=== PATIENT | male | born 1950 | race Hispanic/Latino ===

== ENCOUNTER 2016-04-26 17:16 | Emergency (ER) | payer MEDICARE ==
[~2016-04-26] VITALS: Ht 182.9 cm; Wt 91.8 kg
[~2016-04-26 17:16] MED LIST: ASPI-973 PO; ATOR10TA66 PO; CARV6.252 PO; CINA30TA PO; CIPR-198 PO; EZET10TA PO; FURO40TA4 PO; HYDR-4003 PO; INSU100V27 SQ; INSU100V7 SUBQ; LEVO112T4 PO; LIDO1KIT TP; MIDO10TA PO; SEVE800T7 PO
[2016-04-26 17:23] VITALS: BP 107/59; PULSE 98; RESP 20; O2SAT 95
--- NOTE | 2016-04-26 18:24 | ED.REPORT ---
HPI-Allergic Reaction Date of Service Apr 26, 2016 ED Provider: MD Shirley This is a 65 year old male with a history of CAD, DM, chronic renal failure on dialysis presenting to the emergency department complaining of hives that began 2 days ago. Pt started on kexacalate and reports onset after taking the medication. Describes diffuse hives to extremities, chest, and back. Denies tongue swelling, throat swelling, or SOB. Pt last dialyzed today, upcoming dialysis appointment on Sunday. Nursing Notes Stated Complaint: ALLERGY REACTION/ITCHY LEGS Chief Complaint: Allergic Reaction Nursing Notes Reviewed: Yes Allergies: Coded Allergies: barium sulfate (Verified Allergy, Severe, severe swelling, 03/13/15) Scheduled Aspirin (Aspirin) 81 Mg Tablet 81 MG PO DAILY Atorvastatin Calcium (Atorvastatin Calcium) 10 Mg Tablet 10 MG PO DAILY Cinacalcet (Sensipar) 30 Mg Tablet 30 MG PO HS Ezetimibe (Zetia) 10 Mg Tablet 10 MG PO DAILY Furosemide (Furosemide) 40 Mg Tablet 60 MG PO BID Insulin Glargine (Lantus U100 Insulin Vial) 100 Unit/Ml Vial 20 UNIT SUBQ MORNING Insulin Regular, Human (Novolin-R U100 Insulin Vial) 100 Unit/1 Ml Vial Unknown Dose SQ tid sliding scale Levothyroxine (Levothyroxine) 112 Mcg Tablet 112 MCG PO DAILY Midodrine (Midodrine) 10 Mg Tablet 10 MG PO DAILY Sevelamer Carbonate (Renvela) 800 Mg Tablet 800 MG PO TID Scheduled PRN Hydrocodone-Acetaminophen 5-325 mg (Hydrocodone-Acetaminophen 5-325 mg) 1 Each Tablet 1 TABLET PO Q4H PRN PRN For Pain Lidocaine/Prilocaine (Lidocaine-Prilocaine Cream) 1 Each Kit 1 EACH TP DAILY PRN PRN For Pain To fistula prior to dialysis General Time Seen by MD: 18:23 Chief Complaint Rash Hx Obtained From: Patient Arrived By: Walk-in Onset Occurred: 2 days ago Symptom Duration: Since onset Severity: Current: Mild Pertinent Negative: Pt denies other symptoms Recent Healthcare: Recent doctor visit Similar Sx Previous: No Past Medical History Past Medical History Notes: PCP: Dr. Person Past Medical History ESRD PVD w/claudication Pressure ulcers Hypothyroid Anemia HTN Chronic renal failure on dialysis Reports: Coronary artery disease, Diabetes mellitus Past Surgical History Fistula placed in September 2013 Left side toe and finger amputation. Family History Noncontributory Smoking History Former Smoker Social History Alcohol Use: Denies alcohol use Drug Use: Denies drug use Other Social History: Good social support, , Local resident Ambulatory Status Walker Review of Systems Constitutional: Denies: Chills, Fever Ears / Nose / Throat: Denies: Tongue swelling Respiratory: Denies: Shortness of breath Allergy / Immune: Reports: Hives, Itching Complete sys rev & neg: except as marked. Physical Exam Initial Vital Signs Vital Signs (First) Date Time Temp Pulse Resp B/P Pulse Ox O2 Delivery O2 Flow Rate FiO2 04/26/16 17:23 36.0 98 20 107/59 95 Room Air Initial VS: Reviewed Head / Eyes: Atraumatic, Normocephalic, PERRL ENT: Mucous membranes moist, Conjunctiva normal, No scleral icterus Neck: Supple, Non-tender, Full range of motion Abdomen / GI: Soft, Non-tender, No guarding, No rebound, No distention Extremities: Vascular intact, Neuro intact, No swelling, No tenderness Neurologic: Alert, Oriented, Nonfocal Psychiatric: Mood/affect normal, Behavior normal, Normal thought content General/Constitutional: Awake, Alert Respiratory / Chest: Breath sounds NL, Breath sounds = bilat, No respiratory distress, No rales, No rhonchi, No wheezing, No retractions, No stridor Cardiovascular: Heart rate NL, Regular rhythm, Heart sounds NL, Peripheral circulation NL Skin: Warm, Dry Rash / Lesion Notes: Urticarial wheels on anterior chest and legs, no angioedema Interpretation & Diagnostics Lab Results Interpretation Result Diagram: 04/26/16192404/26/161924 Test 04/26/16 19:24 04/26/16 19:25 Hold Ross Top Tube Received (Received) White Blood Count 8.7th/mm3 (3.8-10.1) Red Blood Count 4.05mil/mm3 (4.40-5.80) Hemoglobin 14.2g/dL (13.8-17.2) Hematocrit 40.1% (41.0-50.0) Mean Corpuscular Volume 99.0fL (81-100) Mean Corpuscular Hemoglobin 35.1pg (27.0-35.0) Mean Corpuscular Hemoglobin Concent 35.4% (32.0-37.0) Red Cell Distribution Width 13.6% (12.3-15.4) Platelet Count 225bil/L (150-400) Neutrophils (%) (Auto) 62.1% (40-74) Lymphocytes (%) (Auto) 19.0% (14-46) Monocytes (%) (Auto) 11.5% (4-12) Eosinophils (%) (Auto) 6.2% (0-5) Basophils (%) (Auto) 0.6% (0-3) Sodium Level 132mEq/L (134-144) Potassium Level 3.6mEq/L (3.5-5.2) Chloride Level 85mEq/L (97-108) Carbon Dioxide Level 27mmol/L (18-29) Blood Urea Nitrogen 22mg/dL (8-27) Creatinine 6.29mg/dL (0.76-1.27) Estimat Glomerular Filtration Rate 9mL/min (>59) Glucose Level 281mg/dL (60-99) Calcium Level 8.8mg/dL (8.5-10.1) Total Bilirubin 0.4mg/dL (0.0-1.2) Aspartate Amino Transf (AST/SGOT) 24U/L (0-50) Alanine Aminotransferase (ALT/SGPT) 9U/L (0-44) Alkaline Phosphatase 106U/L (25-160) Total Protein 8.2g/dL (6.4-8.4) Albumin 4.1g/dL (3.4-5.0) Re-Eval/Medical Decision Med Decision/Clinical Course Pleasant 65-year-old male presents with diffuse urticaria after drinking some Kayexalate that was administered for hyperkalemia. He was medicated with Benadryl and steroids. The rash improved significantly. He had no signs of angioedema or anaphylaxis. Labs were reassuring. Of course his creatinine is elevated. He has chronic renal failure. His potassium is normal. He looked good at discharge. Vitals were stable. Recommend outpatient follow-up and that he avoids Kayexalate in the future. Re-Evaluation/Progress : Time of Eval: 20:07 Re-Evaluation/Progress Note: Discussed lab results and plan for d/c, all questions addressed Counseled Regarding: Diagnosis, Lab results, Need for follow-up, When/why to return to ED Discharge & Departure Primary Impression: Urticaria Additional Impression: Drug allergy Disposition: Home Discharge Condition All VS Reviewed: Yes Condition: Stable Patient Instructions: Urticaria (ED) Additional Instructions: You are allergic to the medication kayexalate. Do not take this medication in the future and inform your sap bw developer about the allergy. Follow up at your dialysis appointment, as scheduled. Return to the emergency department if you develop any new or worsening symptoms. Do not drive tonight as you received sedating medications Referrals: Olu Person MD (PCP) Scribe Attestation Portions of this note were transcribed by Xander Sol. I, Dr. Watson personally performed the history, physical exam and medical decision-making; I reviewed and confirmed the accuracy of the information in the transcribed note. Signed by: Xander Sol. 04/26/2016, 03:00. Kris Watson DO Apr 26, 2016 18:23 XANDER SOL Apr 26, 2016 18:33
[2016-04-26 19:33] LABS: BASOPHILS % (AUTO) 0.6 % (0-3); EOSINOPHILS % (AUTO) 6.2 % (0-5); MONOCYTES % (AUTO) 11.5 % (4-12); Mean Corpuscular Hemoglobin 35.1 pg (27.0-35.0); NEUTROPHILS % (AUTO) 62.1 % (40-74); Platelet Count 225 bil/L (150-400)
[2016-04-26] MEDS ORDERED: hydrOXYzine Pamoate 25 mg Capsule PO ONE (20:40)
[2016-04-26 20:50] VITALS: BP 110/64; PULSE 102; RESP 18; O2SAT 99
[2016-07-24] MEDS ORDERED: CARV3.122 PO (16:25)
== END 2016-04-26 20:53 | disposition home or self-care (01) ==
LOC: SED 17:16
DX: L50.9 Urticaria, unspecified (principal); T50.3X5A Adverse effect of electrolytic, caloric and water-balance agents, initial encounter; I13.11 Hypertensive heart and chronic kidney disease without heart failure, with stage 5 chronic kidney disease, or end stage renal disease; E11.22 Type 2 diabetes mellitus with diabetic chronic kidney disease; E11.59 Type 2 diabetes mellitus with other circulatory complications; I25.10 Atherosclerotic heart disease of native coronary artery without angina pectoris; N18.6 End stage renal disease; E03.9 Hypothyroidism, unspecified; Z99.2 Dependence on renal dialysis; Z79.82 Long term (current) use of aspirin; Z79.4 Long term (current) use of insulin; Z87.891 Personal history of nicotine dependence; Z88.8 Allergy status to other drugs, medicaments and biological substances
CPT/HCPCS: 36415; 80053; 85025; 99283; Q0177

== ENCOUNTER 2016-06-19 01:22 | Day surgery (SDC) | payer MEDICARE ==
[~2016-06-19] VITALS: Ht 182.9 cm; Wt 88.6 kg
[~2016-06-19 01:22] MED LIST changes: -CARV6.252 PO; -CIPR-198 PO
[2016-06-19 10:26] LABS: BASOPHILS % (AUTO) 0.6 % (0-3); EOSINOPHILS % (AUTO) 1.4 % (0-5); Mean Corpuscular Hemoglobin 34.3 pg (27.0-35.0); Mean Corpuscular Volume 106.5 fL (81-100); Platelet Count 235 bil/L (150-400)
[2016-06-19 10:36] VITALS: BP 129/70; PULSE 79; RESP 18; O2SAT 94
[2016-06-19 10:46] LABS: INR 0.95 ratio
[2016-06-19] MEDS ORDERED: LEVO125T6 PO (11:00)
[2016-06-19] MEDS ORDERED: CeFAZolin Inj 2 GM in IV Premix 1 EACH IV ONE (11:05)
[2016-06-19] MEDS ORDERED: CeFAZolin Inj 2 gm / 50mL D5W IV ONE (11:24)
[2016-06-19] MEDS ORDERED: 0.9% Sodium Chloride 500 ML IV SCH (11:45)
[2016-06-19] MEDS ORDERED: Heparin 5,000 Units/500 mL NS Premix IV ONE (12:24)
[2016-06-19] MEDS ORDERED: Heparin 1,000 Unit/mL 10 mL Inj ONE (12:24)
[2016-06-19] MEDS ORDERED: fentaNYL-PF 50 mCg/mL 2 mL Inj ONE (12:58)
[2016-06-19 13:30] VITALS: BP 118/65; PULSE 89; RESP 13
[2016-06-19 13:45] VITALS: BP 122/64; PULSE 92; RESP 13
[2016-06-19 14:00] VITALS: BP 128/61; PULSE 94; RESP 13
[2016-06-19 14:15] VITALS: BP 119/63; PULSE 94; RESP 18
[2016-06-19 14:30] VITALS: BP 150/67; PULSE 92; RESP 18
--- NOTE | 2016-06-19 15:01 | NUR ---
Discharge Pt discharged to home with , pt VSS on RA, tunnel cath site soft non tender, no signs of bleeding or swelling throughout recovery. Pt stated verbal understanding of discharge instructions regarding use of home medications, follow up appointments and signs of worsening condition. Pt left [facility] personal belongings, discharge paperwork, IV d'cd intact at approximately 1500.
--- NOTE | 2016-06-21 09:57 | DRSVH ---
PROCEDURE: CV TUNNEL CATH PLCMNT 1. Sonographic guidance for venous access. 2. Conscious sedation for 41 minutes. 3. Right internal jugular vein tunneled hemodialysis catheter placement. 4. Fluoroscopic guidance for catheter placement. INDICATIONS: HOCM TECHNIQUE: The indications, alternatives, benefits, risks, and complications of the procedure were e xplained to the patient and any family members present. Informed written consent was obtained and pl aced in the chart. The patient was brought to the angiography suite, and conscious sedation was admi nistered intravenously by intermediate staff, while continuous cardiorespiratory monitoring was pe rformed. Maximum sterile barrier technique was employed per standard protocol, including hand hygiene, cap, ma sk, sterile gown and gloves, and 2% chlorhexidine. Sterile ultrasound probe cover was also utilized. 1% lidocaine was used for local anaesthesia. Under sonographic guidance, the right internal jugular vein was accessed with a Micropuncture set. An 0.035J wire was advanced into the vena cava. Subcuta neous tunnel was created within the right anterior chest wall, through which a 14.5 Maori double lum en tunneled hemodialysis catheter was advanced. Following sequential venotomy tract dilation, the ca theter was advanced through the peel-away sheath and the tip was placed at the cavoatrial junction. Peel-away sheath was removed. Adequate flow was obtained through both lumens of the catheter. The v enotomy was closed with Vicryl, and the catheter was fastened to the sking with Ticron. Both lumens were flushed with heparinized saline. The patient tolerated the procedure without difficulty and was in stable condition at the conclusion of the procedure. COMPARISON: None. FINDINGS: The right internal jugular vein is patent by ultrasound. Fluoroscopic imaging demonstrates tip of th e catheter at the cavoatrial junction. IMPRESSION: Right internal jugular vein tunneled hemodialysis catheter placement using sonographic and fluoroscop ic guidance. Dictated by: Zoe Grimes M.D. on 06/21/2016 at 9:55 Approved by: Zoe Grimes M.D. on 06/21/2016 at 9:56
[2016-07-24] MEDS ORDERED: CARV3.122 PO (16:25)
== END 2016-06-19 23:59 | disposition home or self-care (01) ==
LOC: SOUO 01:22
PROVIDERS: ATTEND Radiology Diagnostic Radiology
DX: I12.0 Hypertensive chronic kidney disease with stage 5 chronic kidney disease or end stage renal disease (principal); E11.21 Type 2 diabetes mellitus with diabetic nephropathy; N18.6 End stage renal disease; T82.868A Thrombosis due to vascular prosthetic devices, implants and grafts, initial encounter; Y83.2 Surgical operation with anastomosis, bypass or graft as the cause of abnormal reaction of the patient, or of later complication, without mention of misadventure at the time of the procedure; I74.8 Embolism and thrombosis of other arteries; N25.0 Renal osteodystrophy; Z99.2 Dependence on renal dialysis; Z79.82 Long term (current) use of aspirin; Z79.4 Long term (current) use of insulin
CPT/HCPCS: 36415; 36558; 76937; 77001; 80048; 85025; 85610; 85730; 99152; C1750; C1769; C1887; J1644; J2250; J3010

== ENCOUNTER 2016-07-03 19:27 | Emergency (ER) | payer MEDICARE ==
[~2016-07-03] VITALS: Ht 182.9 cm; Wt 88.6 kg
[~2016-07-03 19:27] MED LIST changes: -EZET10TA PO; -HYDR-4003 PO; -LEVO112T4 PO; +LEVO125T6 PO
[2016-07-03 19:38] VITALS: BP 99/53; PULSE 85; RESP 16; O2SAT 96
--- NOTE | 2016-07-03 22:02 | ED.REPORT ---
HPI-Extremity Problem Lower Date of Service July 03, 2016 ED Provider: Sukhwinder Tam MD A 65 year old male with a history of ESRD on dialysis, diabetes, hypertension and multiple other medical concerns presents to the ED complaining of diabetic sores on his feet onset one week ago. The sores are present on both feet but are worse on the right, causing pain when the pt walks. The sore on his right foot recently burst and has been draining clear fluid. The pt denies fever. He has an appointment scheduled with his PCP later this month, but is concerned that the condition may worsen significantly before this appointment. The pt's blood sugar was 231 when he checked at 09:00 and he was last dialyzed today. Nursing Notes Stated Complaint: SORES ON HEALS OF FEET/DIABETIC Chief Complaint: Skin Rash/Abscess Nursing Notes Reviewed: Yes Allergies: Coded Allergies: barium sulfate (Verified Allergy, Severe, severe swelling, 07/03/16) Uncoded Allergies: KAEXYLATE (Allergy, Mild, Hives, 07/03/16) Scheduled Aspirin (Aspirin) 81 Mg Tablet 81 MG PO DAILY Atorvastatin Calcium (Atorvastatin Calcium) 10 Mg Tablet 10 MG PO DAILY Cinacalcet (Sensipar) 30 Mg Tablet 30 MG PO HS Furosemide (Furosemide) 40 Mg Tablet 60 MG PO BID Insulin Glargine (Lantus U100 Insulin Vial) 100 Unit/Ml Vial 25 UNIT SUBQ MORNING Insulin Regular, Human (Novolin-R U100 Insulin Vial) 100 Unit/1 Ml Vial 5-10 SQ tid sliding scale Levothyroxine (Levothyroxine) 125 Mcg Tablet 125 MCG PO DAILY Midodrine (Midodrine) 10 Mg Tablet 10 MG PO BID Sevelamer Carbonate (Renvela) 800 Mg Tablet 800 MG PO TID Scheduled PRN Lidocaine/Prilocaine (Lidocaine-Prilocaine Cream) 1 Each Kit 1 EACH TP DAILY PRN PRN For Pain To fistula prior to dialysis General Time Seen by MD: 22:02 Chief Complaint Other (Sores on bilateral feet) Hx Obtained From: Patient, Spouse Arrived By: Wheelchair Onset Occurred: 1 week ago Symptom Duration: Since onset Recent Healthcare: No recent hospitalization, Recent doctor visit Similar Sx Previous: Yes Past Medical History Past Medical History Notes: PCP: Dr. Person Past Medical History ESRD on dialysis PVD w/claudication Pressure ulcers Hypothyroid Anemia Chronic renal failure on dialysis Reports: Coronary artery disease, Diabetes mellitus, Hypertension Past Surgical History Fistula placed in September 2013 Left side toe and finger amputation. Family History Noncontributory Smoking History Former Smoker Social History Alcohol Use: Denies alcohol use Drug Use: Denies drug use Other Social History: Good social support, , Local resident Ambulatory Status Walker Review of Systems Review of Systems Note: draining diabetic sores on bilateral feet Constitutional: Denies: Fever Musculoskeletal: Reports: Extremity pain Complete sys rev & neg: except as marked. Respiratory: Denies: Non-productive cough Cardiovascular: Denies: Chest pain GI: Denies: Abdominal pain Physical Exam Initial Vital Signs Vital Signs (First) Date Time Temp Pulse Resp B/P Pulse Ox O2 Delivery O2 Flow Rate FiO2 07/03/16 19:38 36.2 85 16 99/53 96 Room Air Initial VS: Reviewed Lower Extremity / Pelvis / MS: Atraumatic, Full range of motion Ankle / Foot: Neurologic intact, Vascular intact quarter-sized circular full thickness wound on right heel, draining clear fluid superficial ulcer at tip of third toe and laterally on fifth toe dried wound over the fifth metatarsal trans metatarsal amputation of first three metatarsals of the left foot dime-sized ulcer on the lateral aspect of the left heel, full thickness, not draining General/Constitutional: Awake, Alert Respiratory / Chest: Atraumatic, Breath sounds NL, Breath sounds = bilat, No respiratory distress Cardiovascular: Heart rate NL, Regular rhythm, Heart sounds NL Skin: Atraumatic, Color NL, No rash, Warm, Dry Neurologic: Oriented X3, Speech NL, No motor deficits, No sensory deficits Head / Eyes: Atraumatic, Normocephalic, PERRL, EOMI ENT: Atraumatic, Airway patent, Mucous membranes moist Neck: Atraumatic, Supple, Full range of motion Abdomen: Atraumatic, Soft, Non-tender Back: Atraumatic, Full range of motion Upper Extremity / MS: Atraumatic, Full range of motion Psychiatric: Affect NL, Mood NL Interpretation & Diagnostics Lab Results Interpretation Result Diagram: 07/03/16223907/03/162239 Test 07/03/16 22:40 White Blood Count 11.1th/mm3 (3.8-10.1) Red Blood Count 3.63mil/mm3 (4.40-5.80) Hemoglobin 12.4g/dL (13.8-17.2) Hematocrit 37.9% (41.0-50.0) Mean Corpuscular Volume 104.4fL (81-100) Mean Corpuscular Hemoglobin 34.2pg (27.0-35.0) Mean Corpuscular Hemoglobin Concent 32.7% (32.0-37.0) Red Cell Distribution Width 13.2% (12.3-15.4) Platelet Count 241bil/L (150-400) Neutrophils (%) (Auto) 68.7% (40-74) Lymphocytes (%) (Auto) 16.5% (14-46) Monocytes (%) (Auto) 10.2% (4-12) Eosinophils (%) (Auto) 3.5% (0-5) Basophils (%) (Auto) 0.6% (0-3) Sodium Level 134mEq/L (134-144) Potassium Level 3.9mEq/L (3.5-5.2) Chloride Level 92mEq/L (97-108) Carbon Dioxide Level 25mmol/L (18-29) Blood Urea Nitrogen 22mg/dL (8-27) Creatinine 6.23mg/dL (0.76-1.27) Estimat Glomerular Filtration Rate 10mL/min (>59) Glucose Level 307mg/dL (60-99) Calcium Level 8.1mg/dL (8.5-10.1) Total Bilirubin 0.3mg/dL (0.0-1.2) Aspartate Amino Transf (AST/SGOT) 14U/L (0-50) Alanine Aminotransferase (ALT/SGPT) 7U/L (0-44) Alkaline Phosphatase 119U/L (25-160) Total Protein 7.7g/dL (6.4-8.4) Albumin 3.4g/dL (3.4-5.0) Hold Ross Top Tube Received (Received) X-Ray Interpretation Xray Interpretation: no acute findings X-Ray Ordered: Foot right Interpretation / Wet Read by: Wet read ED physician Xray Interpretation: no acute bony issues X-Ray Ordered: Foot left Interpretation / Wet Read by: Wet read ED physician Re-Eval/Medical Decision Source of Hx: Old records Re-Evaluation/Progress : Time of Eval: 23:59 Patient Status: Condition improved Re-Evaluation/Progress Note: Pt rechecked, who is resting comfortably. The diagnosis and plan for discharge are discussed. The pt understands and agrees with the plan. All questions are addressed at this time. Consultation : Referral / Consult Name: Benjamin Ledezma DPM Call Returned at: 23:27 Customer Solutions Coordinator: Will see patient, Agrees with eval, Agrees with plan Note: Consulted with Dr. Ledezma, podietry, regarding pt's case. Dr. Ledezma agrees with the evaluation and agrees to see the pt in the office. Counseled Regarding: Diagnosis, Lab results, Need for follow-up, When/why to return to ED Discharge & Departure Impression: Primary Impression: Diabetic foot ulcer Diabetic foot ulcer location: heel Laterality: right Non-pressure ulcer stage: limited to breakdown of skin Additional Impression: Wound infection Disposition: Home Discharge Condition All VS Reviewed: Yes Condition: Stable Additional Instructions: Emergency department today reevaluated a diabetic foot wound on the heel. Right foot. This does appear to be infected and there does not appear to be bone involvement at present. We gave a single dose of Levaquin orally and discussed the case with Dr Ledezma of podiatry. Call the podiatry office tomorrow to be seen by Dr. Jack tomorrow. Continue other previous home care. Referrals: Olu Person MD (PCP) Mariel Herndon MD, Nathan A DPM Scribe Attestation Portions of this note were transcribed by Delaney Olmstead. I, Dr. Tam personally performed the history, physical exam and medical decision-making; I reviewed and confirmed the accuracy of the information in the transcribed note. Signed by: Parris Alvarado, 07/04/16 and 0046. copies to: Mariel Herndon MD; Olu Person MD, Donald L MD July 03, 2016 22:02 DELANEY OLMSTEAD July 03, 2016 22:13
[2016-07-03 22:31] VITALS: BP 97/62; PULSE 69; RESP 20; O2SAT 95
[2016-07-03 22:57] LABS: BASOPHILS % (AUTO) 0.6 % (0-3); EOSINOPHILS % (AUTO) 3.5 % (0-5); MONOCYTES % (AUTO) 10.2 % (4-12); Mean Corpuscular Hemoglobin 34.2 pg (27.0-35.0); Mean Corpuscular Volume 104.4 fL (81-100); NEUTROPHILS % (AUTO) 68.7 % (40-74); Platelet Count 241 bil/L (150-400)
[2016-07-03] MEDS ORDERED: levoFLOXacin 500 mg Tablet PO ONE (23:35)
[2016-07-04 00:25] VITALS: BP 95/52; PULSE 71; RESP 16; O2SAT 94
--- NOTE | 2016-07-04 08:28 | DRSVH ---
PROCEDURE: X-RAY RIGHT FOOT COMPLETE, MINIMUM THREE VIEWS ([id number]) INDICATIONS: diabetic with foot wounds, RIGHT heel most concern TECHNIQUE: 3 views of the foot were acquired. COMPARISON: [facility], CR, XR TOE(S) 2VW RT, 10/23/2015, 20:19. FINDINGS: Bones: No fractures or dislocations. No suspicious bony lesions. Osteoarthritic changes redemonstr ated. Soft tissues: No tibiotalar joint effusion. Achilles tendon appears normal. Vascular calcification s indicate atherosclerosis. IMPRESSION: Although no bony erosions are identified, plain film radiography is relatively insensiti ve in the acute phases of osteomyelitis and may not demonstrate radiographic changes for 15 days. If acute osteomyelitis is of clinical concern, nuclear medicine regional bone scan or MRI is recommende d. Dictated by: Mikhail Hamilton [facility] Interpreted: Celestine Godfrey MD on 07/04/2016 at 8:27 Transcribed by: JUANA on 07/04/2016 at 8:28 Approved by: Celestine Godfrey M.D. on 07/04/2016 at 9:53
--- NOTE | 2016-07-04 08:31 | DRSVH ---
PROCEDURE: X-RAY LEFT FOOT COMPLETE, MINIMUM THREE VIEWS ([id number]) INDICATIONS: diabetic with foot wounds, RIGHT heel most concern TECHNIQUE: 3 views of the foot were acquired. COMPARISON: [facility], CR, XR FOOT 3VW RT, 07/03/2016, 22:34. [facility], C R, XR TOE(S) 2VW RT, 10/23/2015, 20:19. FINDINGS: Bones: No fractures or dislocations. No suspicious bony lesions. Prior amputation of the third thr ough fifth digits from the proximal metatarsal level. There is cortical irregularity and lucency abo ut the distal aspect of the third residual metatarsal base with adjacent soft tissue swelling. Remot e first metatarsal fracture. Osteoarthritic changes redemonstrated. Soft tissues: No tibiotalar joint effusion. Achilles tendon appears normal. Vascular calcification s indicate atherosclerosis. IMPRESSION: 1. Cortical irregularity and lucency involving the distal aspect of the residual third metatarsal bon e suspicious for osteomyelitis. Correlate clinically. Dictated by: Mikhail Hamilton Chantal Interpreted: Celestine Godfrey MD on 07/04/2016 at 8:28 Transcribed by: JUANA on 07/04/2016 at 8:30 Approved by: Celestine Godfrey M.D. on 07/04/2016 at 9:53
[2016-07-24] MEDS ORDERED: CARV3.122 PO (16:25)
== END 2016-07-04 00:26 | disposition home or self-care (01) ==
LOC: SED 19:27
DX: E11.621 Type 2 diabetes mellitus with foot ulcer (principal); L97.411 Non-pressure chronic ulcer of right heel and midfoot limited to breakdown of skin; L08.9 Local infection of the skin and subcutaneous tissue, unspecified; E11.22 Type 2 diabetes mellitus with diabetic chronic kidney disease; I12.0 Hypertensive chronic kidney disease with stage 5 chronic kidney disease or end stage renal disease; N18.6 End stage renal disease; I73.9 Peripheral vascular disease, unspecified; E03.9 Hypothyroidism, unspecified; I25.10 Atherosclerotic heart disease of native coronary artery without angina pectoris; Z99.2 Dependence on renal dialysis; Z95.828 Presence of other vascular implants and grafts; Z87.891 Personal history of nicotine dependence; Z79.4 Long term (current) use of insulin; Z79.82 Long term (current) use of aspirin; Z88.8 Allergy status to other drugs, medicaments and biological substances

== ENCOUNTER 2016-07-20 00:10 | Day surgery (SDC) | payer MEDICARE ==
[~2016-07-20] VITALS: Ht 182.9 cm; Wt 84.0 kg
--- NOTE | 2016-07-20 09:10 | NUR ---
HERE FOR PHYSICIAN CONSULT WITH DR SNOWDEN
[2016-07-20 09:15] VITALS: BP 80/49; PULSE 101; RESP 16; O2SAT 98
--- NOTE | 2016-07-20 09:45 | NUR ---
INSTRUCTIONS GIVEN. APPOINTMENT MADE
[2016-07-24] MEDS ORDERED: CARV3.122 PO (16:25)
== END 2016-07-20 23:59 | disposition home or self-care (01) ==
LOC: SOUO 00:10
PROVIDERS: ATTEND Radiology Diagnostic Radiology
DX: Z71.89 Other specified counseling (principal); E11.621 Type 2 diabetes mellitus with foot ulcer; E11.40 Type 2 diabetes mellitus with diabetic neuropathy, unspecified; L97.419 Non-pressure chronic ulcer of right heel and midfoot with unspecified severity; L89.613 Pressure ulcer of right heel, stage 3; Z79.4 Long term (current) use of insulin

== ENCOUNTER 2016-07-25 00:31 | Day surgery (SDC) | payer MEDICARE ==
[~2016-07-25] VITALS: Ht 182.9 cm; Wt 84.0 kg
[2016-07-25] VITALS (9 sets, daily range): BP systolic 103–120; BP diastolic 57–72; PULSE 72–82; RESP 16; O2SAT 94–97
[~2016-07-25 00:31] MED LIST changes: +CARV3.122 PO; -LIDO1KIT TP
[2016-07-25 11:30] LABS: INR 0.95 ratio
[2016-07-25 11:31] LABS: BASOPHILS % (AUTO) 0.6 % (0-3); EOSINOPHILS % (AUTO) 3.1 % (0-5); MONOCYTES % (AUTO) 11.6 % (4-12); Mean Corpuscular Volume 102.4 fL (81-100); NEUTROPHILS % (AUTO) 59.8 % (40-74); Platelet Count 274 bil/L (150-400)
[2016-07-25] MEDS ORDERED: CeFAZolin Inj 2 gm / 50mL D5W IV ONE (12:21)
[2016-07-25] MEDS ORDERED: fentaNYL-PF 50 mCg/mL 2 mL Inj ONE ×2 (12:44→13:38)
[2016-07-25] MEDS ORDERED: Heparin 10,000 Unit/1,000 mL NS Premix IV ONE ×2 (12:44→13:42)
[2016-07-25] MEDS ORDERED: Heparin 1,000 Unit/mL 10 mL Inj ONE (12:57)
[2016-07-25] MEDS ORDERED: Protamine Sulfate 10 mg/mL 5 mL Inj ONE (13:59)
--- NOTE | 2016-07-25 15:30 | DRSVH ---
PROCEDURE: 1. Abdominal aortogram. 2. Bilateral lower extremity runoff evaluation. 3. Selective angiography of right common femoral artery. 4. Conscious sedation x73 minutes. INDICATIONS: Peripheral vascular disease. COMPARISON: [facility] Ultrasound, US, US ARTERY LEG DPLX BILAT, 07/13/2016, 14:18. TECHNIQUE: Informed, written consent from the patient was obtained prior to the procedure. Patient wa s brought to the angiography suite, and conscious sedation was administered intravenously by residential staff, while continuous cardiorespiratory monitoring was performed. Maximal sterile barrier t echnique, hand hygiene, skin preparation, and sterile ultrasound technique (if ultrasound was utilize d) was followed. A mask, sterile gown, sterile gloves, a large sterile sheet, hand hygiene, and 2% ch lorhexidine or iodine was utilized for skin antisepsis. The bilateral groins were prepped and draped sterilely, and the skin and subcutaneous tissues overlying the left common femoral artery were infuse d with lidocaine. The left common femoral artery was accessed retrograde with a micropuncture set. A 4 Fijian sheath was advanced and a 4 Fijian pigtail catheter was advanced into the perirenal abdomina l aorta and injected for AP aortography. Pigtail catheter was then withdrawn into the distal aorta fo r bilateral oblique pelvic arteriography, as well as bilateral lower extremity runoff. A C2 catheter was then used to select the right common iliac artery, and was advanced and used to selectively injec t the right common femoral artery. Intravenous heparin was administered. A 6 Fijian Miguel sheath was advanced, and the tip was placed in the proximal superficial femoral artery. A 6 Fijian front runner device was used to attempt to recannulize the superficial femoral artery, which was unsuccessful. She ath was removed and the left common femoral artery was closed with a Starclose device. FLUOROSCOPY TIME: 21 minutes FINDINGS: The abdominal aorta is mildly diffusely stenotic. Single bilateral renal arteries are pres ent, and are patent. Left: Common iliac artery is widely patent. High grade stenosis involves the left internal iliac artery jamie gin. External iliac arteries patent. Common femoral artery is patent, and demonstrates a high bifurca tion. Profunda femoris patent. Moderate stenosis involves the proximal superficial femoral artery. Mu ltifocal high-grade stenoses within the superficial femoral artery are present. There is a roughly 15 cm long segment of distal left superficial femoral artery occlusion. Above and below-knee popliteal artery is patent. Runoff vessels are not well-seen secondary to motion artifact. Right: Comment an external iliac arteries are mildly diffusely stenotic. Internal iliac artery is occluded. Common femoral artery is patent. Profunda femoris patent. Superficial femoral artery occludes just di stal to its origin. Superficial femoral artery reconstitutes distally. Above and below-knee popliteal artery is patent. Anterior tibial artery appears to be patent to its normal terminus. Peroneal and p osterior tibial arteries not well seen secondary to motion artifact. IMPRESSION: 1. No significant inflow stenosis. 2. Bilateral superficial femoral artery occlusions. 3. Suboptimally visualized runoff vessels bilaterally. 4. Unsuccessful attempt at antegrade recanalization of right superficial femoral artery. The patient will be scheduled to return for retrograde popliteal artery access and attempted retrograde recanaliz ation of the superficial femoral artery. Dictated by: Zoe Grimes M.D. on 07/25/2016 at 14:58 Approved by: Zoe Grimes M.D. on 07/25/2016 at 15:29
--- NOTE | 2016-07-25 17:50 | NUR ---
Pt discharged to home, ambulatory with walker, accompanied by spouse. Pt's VSS, Lt groin puncture site CDI with no bleeding/hematoma noted. Pt given all discharge instructions and scheduled appointment. Pt had no further questions at time of d/c.
== END 2016-07-25 23:59 | disposition home or self-care (01) ==
LOC: SOUO 00:31
PROVIDERS: ATTEND Radiology Diagnostic Radiology
DX: I70.203 Unspecified atherosclerosis of native arteries of extremities, bilateral legs (principal); Z53.8 Procedure and treatment not carried out for other reasons; I70.8 Atherosclerosis of other arteries; I77.1 Stricture of artery; L89.613 Pressure ulcer of right heel, stage 3; I12.9 Hypertensive chronic kidney disease with stage 1 through stage 4 chronic kidney disease, or unspecified chronic kidney disease; E11.22 Type 2 diabetes mellitus with diabetic chronic kidney disease; E11.40 Type 2 diabetes mellitus with diabetic neuropathy, unspecified; E03.9 Hypothyroidism, unspecified; N18.9 Chronic kidney disease, unspecified; I25.10 Atherosclerotic heart disease of native coronary artery without angina pectoris; E78.5 Hyperlipidemia, unspecified; Z79.82 Long term (current) use of aspirin; Z79.4 Long term (current) use of insulin
CPT/HCPCS: 36415; 37224; 75625; 75716; 80048; 85025; 85610; 99152; 99153; C1730; C1760; C1769; C1894; J0690; J1644; J2250; J2720; J3010; Q9967

== ENCOUNTER 2016-08-08 00:22 | Day surgery (SDC) | payer MEDICARE ==
[~2016-08-08] VITALS: Ht 182.9 cm; Wt 86.8 kg
[2016-08-08] VITALS (18 sets, daily range): BP systolic 105–128; BP diastolic 56–82; PULSE 67–85; RESP 12–20; O2SAT 90–95
[~2016-08-08 00:22] MED LIST changes: -CARV3.122 PO
[2016-08-08 11:24] LABS: BASOPHILS % (AUTO) 1.3 % (0-3); EOSINOPHILS % (AUTO) 4.2 % (0-5); MONOCYTES % (AUTO) 9.2 % (4-12); Mean Corpuscular Hemoglobin 32.6 pg (27.0-35.0); Mean Corpuscular Volume 105.4 fL (81-100); NEUTROPHILS % (AUTO) 51.5 % (40-74); Platelet Count 256 bil/L (150-400)
[2016-08-08 11:28] LABS: INR 0.94 ratio
[2016-08-08] MEDS ORDERED: Heparin 10,000 Unit/1,000 mL NS Premix IV ONE (12:10)
--- NOTE | 2016-08-08 12:49 | NUR ---
CESAR Admit to CESAR 6. at bedside. Patient denies pain. HL X 2 placed and labs drawn. Consent obtained by MD and witnessed. History and medications reviewed. BG elevated but patient states his baseline is over 200 and he does not feel well if lower than 150. MD notified. Pre-procedure teaching done and questions answered.
[2016-08-08] MEDS ORDERED: fentaNYL-PF 50 mCg/mL 2 mL Inj ONE ×2 (13:12→15:21)
[2016-08-08] MEDS ORDERED: Heparin 1,000 Unit/mL 10 mL Inj ONE (13:25)
[2016-08-08] MEDS ORDERED: Heparin 5,000 Units/500 mL NS Premix IV ONE (15:21)
--- NOTE | 2016-08-08 16:31 | DRSVH ---
PROCEDURE: 1. Selective right superficial femoral arteriography. 2. Selective right popliteal arteriography. 3. Ultrasound guidance for right popliteal artery access. 4. Angioplasty of right superficial femoral artery. 5. Angioplasty of right above knee popliteal artery. 6. Drug-eluting stent placement within the proximal right superficial femoral artery. 7. Drug-eluting stent placement within the mid right superficial femoral artery. 8. Drug-eluting stent placement within right distal superficial femoral artery and right above knee p opliteal artery. 9. Right popliteal artery closure device. 10. Conscious sedation times 166 minutes. INDICATIONS: Nonhealing right lower extremity ulcer. COMPARISON: [facility], XA, ARTERIO VENOUS FISTULOGRAM (PNL), 11/18/2015, 12:58. [facility], XA, ANGIO,EXTREM BILATERAL (PNL), 07/25/2016, 12:56. TECHNIQUE: Informed, written consent from the patient was obtained prior to the procedure. Patient wa s brought to the angiography suite, and conscious sedation was administered intravenously by nursing home staff, while continuous cardiorespiratory monitoring was performed. Maximal sterile barrier t echnique, hand hygiene, skin preparation, and sterile ultrasound technique (if ultrasound was utilize d) was followed. A mask, sterile gown, sterile gloves, a large sterile sheet, hand hygiene, and 2% ch lorhexidine or iodine was utilized for skin antisepsis. The right popliteal fossa was prepped and laura ped sterilely, and the skin and subcutaneous tissues overlying the right popliteal artery were infuse d with lidocaine. The right popliteal artery was accessed retrograde with a micropuncture set. Contra st was injected for selective popliteal arteriography. A 4 Yi nontapered angled catheter, glide w adrian, and Outback device were used to recannulize the right superficial femoral artery and above-knee popliteal artery using subintimal dissection. A 5 mm balloon was used to pre-dilate the superficial f emoral artery and above-knee popliteal artery. A total of 3 drug-eluting stents were deployed within the proximal, mid, and distal superficial femoral artery, as well as the above-knee popliteal artery. The stents were then post dilated with a 6 mm balloon. Repeat arteriography was performed. Popliteal artery was closed with a Starclose device. FLUOROSCOPY TIME: 57.5 minutes FINDINGS: The superficial femoral artery and above-knee popliteal artery are occluded. Following rec annulization, angioplasty, stent, and post stent angioplasty, there is restored flow within the super ficial femoral artery and above-knee popliteal artery. There is three-vessel right lower extremity ru noff. IMPRESSION: 1. Successful recanalization of the above-knee popliteal artery, as well as the superficial femoral a rtery, status post drug-eluting stent placement. 2. Followup arterial Doppler and outpatient consult will be scheduled in 2 weeks. 3. Oral Plavix therapy was initiated following the procedure. The patient was instructed to take oral Plavix for 6 months, followed by ASA 325 mg p.o. q.d. for life. Dictated by: Zoe Grimes M.D. on 08/08/2016 at 16:23 Approved by: Zoe Grimes M.D. on 08/08/2016 at 16:29
[2016-08-08] MEDS ORDERED: Insulin Human REGular-Omnicell 100 Unit/mL ONE (16:39)
--- NOTE | 2016-08-08 20:57 | NUR ---
CESAR Patient return from [facility] at 1600. at bedside. Right popiteal puncture without bleeding or hematoma. Patient denies pain. Discharge instructions reviewed with patient and , written information given and questions answered. Home at 2030.
== END 2016-08-08 23:59 | disposition home or self-care (01) ==
LOC: SOUO 00:22
PROVIDERS: ATTEND Radiology Diagnostic Radiology
DX: I77.1 Stricture of artery (principal); L97.819 Non-pressure chronic ulcer of other part of right lower leg with unspecified severity
CPT/HCPCS: 36415; 37226; 80048; 85025; 85610; 99152; 99153; C1725; C1760; C1769; C1874; C1887; J1644; J1815; J2250; J3010; Q9967

== ENCOUNTER 2016-10-12 05:33 | Inpatient (IN) | payer MEDICARE ==
[2016-10-12] VITALS (9 sets, daily range): BP systolic 96–127; BP diastolic 56–80; PULSE 68–84; RESP 11–18; O2SAT 93–96
[~2016-10-12] VITALS: Ht 182.9 cm; Wt 86.2 kg
[~2016-10-12 05:33] MED LIST changes: -ASPI-973 PO; +CLOP75TA3 PO; -FURO40TA4 PO; +Lactated Ringer's 1,000 ML IV SCH; -SEVE800T7 PO
[2016-10-12] MEDS ORDERED: Lactated Ringer's 1,000 ML IV ONE (06:11)
--- NOTE | 2016-10-12 07:06 | PCM.HPANE ---
Patient Data Date of Service: Oct 12, 2016 Surgeon Admitting Provider: Attending Provider:Celine Carpio DPM Primary Care Physician:Olu Person MD Other Provider:Burak Curtis Anesthesia Reason for Visit Necrotic Ulcer Right Heel With Type 2 Diabetes And Ht/WT & BMI Height (Feet): 6 Height (Inches): 0.00 Weight (Kilograms): 83.900 Body Mass Index 25.00 Allergies Coded Allergies: barium sulfate (Verified Allergy, Severe, severe swelling, 10/10/16) Uncoded Allergies: KAEXYLATE (Allergy, Mild, Hives, 07/03/16) Past Anesthesia History Anesthesia History: Denies:: Abnormal Airway, Anesthesia Reactions, Difficult Intubation, Fam Anesthesia Reaction, Fam Malignant Hypertherm, Malignant Hyperthermia Diabetes History Hx Diabetes?: Yes Type of Diabetes: Type I Glycemic Control: Insulin Dependent Current Bedside Blood Glucose: 126 MRSA MRSA: No Medications Blood Thinner: Plavix Hypertension Medication: Yes (Midodrine) Home Meds Incl Beta Heide: No Reported Medications Clopidogrel Bisulfate (Plavix)75 Mg Wrzvyf85 Mg PO DAILY 30 Days Ref 0 10/10/16 Levothyroxine 125 Mcg [id number] Mcg PO DAILY For Thyroid Replacement Ref 0 06/19/16 Insulin Glargine (Lantus U100 Insulin Vial)100 Unit/Ml Vial25 Unit SUBQ HS #1 VIAL Ref 0 04/26/16 Midodrine 10 Mg [id number] Mg PO BID 11/18/15 Cinacalcet (Sensipar)30 Mg Eojftv71 Mg PO HS Ref 0 11/17/15 Insulin Regular, Human (Novolin-R U100 Insulin Vial)100 Unit/1 Ml Vial5-10 SQ tid sliding scale #1 VIAL Ref 0 10/13/14 Atorvastatin Calcium 10 Mg Zgquvo09 Mg PO DAILY 30 Days Ref 0 01/22/14 Discontinued Reported Medications Sevelamer Carbonate (Renvela)800 Mg Lsopav673 Mg PO TID 90 Days 11/17/15 Aspirin 81 Mg Gyojqc62 Mg PO DAILY Ref 0 10/13/14 History History of ENT Problems?: Yes HEENT History: Positive for:: Cataracts (left eye) Denies:: Abnormal Airway Difficult Intubation Dysphagia Glaucoma (Considered legally blind) Hearing Problem Sinus Problem TMJ Denture Type: Partial- Upper Teeth Condition: No Teeth Hx of Heart Problems?: Yes Cardiovascular History: Positive for:: Heart Murmur Hypertension Irregular Heartbeat (regularly irregular.) Peripheral Vascular (secondary to Diabetes) Denies:: AICD Abdominal Aortic Aneurism Atrial Fibrillation Cardiac Surgery Chest Pain Congestive Heart Failure Coronary Artery Disease Edema (Chronic kidney disease ) Pacemaker Rheumatic Fever Thrombophlebitis Valvular Heart Disease Hx of Respiratory Problem?: Yes Respiratory History: Positive for:: Pneumonia (2016) Denies:: Asthma COPD Chest Surgery Cough Dyspnea Emphysema Hemoptysis Pulmonary Embolism Tuberculosis Use of C-PAP Machine Use of Inhalers / NEBS Hx Neurologic Problems?: No Neurological History: Positive for:: Peripheral Neuropathy Denies:: Alzheimer's Disease CVA Dementia Dizziness Headaches Multiple Sclerosis Parkinson's Disease Seizures TIA Hx of GI Problems?: No Gastrointestinal History: Denies:: Gastroesphageal Reflux Heartburn Hx of Problems?: Yes Genitourinary History: Positive for:: HX of Hemodialysis (M/W/F dialysis last done 10/11/16) Kidney Stones Denies:: Urinary Tract Infection HX of Peritoneal Dialysis: No Male Hx: Denies:: Prostate Problems Scrotal Mass Testicular Surgery Skin History: Denies:: History Skin Disorders? Pressure Ulcers Hx Musculoskeletal Problems?: No Musculoskeletal History: Denies:: Back Injury Degenerative Joint Fibromyalgia Joint Replacement Musculoskeletal Trauma Myasthenia Gravis Osteoarthritis Rheumatoid Arthritis Systemic Lupus Hx of Psycho/Social Problems?: No Psycho Social History: Denies:: Anxiety Bipolar Disorder Hx Depression Suicide Attempt Hx Surgeries?: Yes (fistula, Port a cath) Hx Any Other Health Problems?: Yes Other History: Positive for:: Hospitalization (Pneumonia 2016) Thyroid Disease Denies:: Cancer Endocrine Disease History Blood Transfusions: Positive for:: Accept Blood Products? Denies:: Blood Transfuse Reaction Blood Transfusions Hx Diabetes: YesBedside Blood Glucose: 126 Hx Alcohol Use: NoHx Substance Use: No Smoking Status: Former Smoker Have You Smoked inLast 12 mo: No Stop/Bang S-Snoring: Do You Snore Loudly: No T-Tired: feel tired, fatigued: No O-Obsered: Observed not breath: No P-Blood Pressure: treated: Yes B- Body Mass Index > 35 kg/m2: No A- Age over 50: Yes N- Neck Large Circumference: No G- Gender Male: Yes ALMAZ Total Score: 3 ALMAZ Risk Assessment: High Risk, =/>3 Yes ALMAZ Category 2: Yes Risk Assessment Category Category 1A: Patient has history of documented sleep apnea, and HAS NOT received any narcotic, sedative or anesthesia administration during this stay. Category 1B: Patient has history of documented sleep apnea, and HAS received any narcotic , sedative or anesthesia administration during this stay Category 2: Patient has SUSPECTED Obstructive Sleep Apnea, and HAS received any narcotic , sedative or anesthesia administration during this stay. Category 3: Patient has SUSPECTED Obstructive Sleep Apnea and HAS NOT received narcotic, sedative or anesthesia administration during this stay. Category 4: Outpatient in Procedural Areas with known sleep apnea or who screen positive for High Risk via the STOP/BANG questionnaire. Exam Exam Vital Signs Vital Signs Date Time Temp Pulse Resp B/P Pulse Ox O2 Delivery O2 Flow Rate FiO2 10/12/16 06:12 36.5 79 17 117/62 96 Room Air General Appearance: Alert, Oriented X3, Cooperative, No Acute Distress HEENT/AIRWAY: MP 1, Neck Movement (limited extension, tmd 3 fb) Lungs: Clear to Auscultation, Normal Air Movement Heart: Exam Unremarkable, Regular Rate/Rhythm, No Murmurs/Rubs/Gallops Meds/Labs/Diagnostics Admission Meds Current Medications Lactated Ringer's (Lr) 1,000 ml @ ud STK-MED ONCE IV Last administered on 10/12t 06:11; Start 10/12/16 at 06:11; Stop 10/12/16 at 06:12; Status DC Bedside Blood Glucose: 126 Labs Test 10/12/16 06:11 Potassium Level 3.9mEq/L (3.5-5.2) Plan Impression Patient chart reviewed, patient interviewed and anesthestic plan with risks, benefits, and alternatives discussed, and informed consent obtained. NPO per Anesth. Guidelines: Yes ASA Physical Status: ASA4 Life Threatening (ESRD, CAD, advanced DM1) Anesthetic Plan: MAC Bene/Risks/Altern/Consents: Yes HP Complete Prior to Induction: Yes Niall Salinas MD Oct 12, 2016 07:06
[2016-10-12] MEDS ORDERED: 0.9% Sodium Chloride 500 ML IV ONE (07:52)
[2016-10-12] MEDS ORDERED: Gentamicin 40 mg/mL 2 mL Inj IRRIGATION ONE ×2 (07:54→08:09)
[2016-10-12] MEDS ORDERED: Ondansetron 2 mg/mL 2 mL Inj IVPUSH PRN ×2 (08:00→08:35)
[2016-10-12] MEDS ORDERED: Atropine 0.4 mg/mL Inj IVPUSH PRN (08:00)
[2016-10-12] MEDS ORDERED: EPHEDrine Sulfate 50 mg/mL Inj IVPUSH PRN (08:00)
[2016-10-12] MEDS ORDERED: Lactated Ringer's 1,000 ML IV SCH (08:00)
[2016-10-12] MEDS ORDERED: Lactated Ringer's 500 ML IV PRN (08:00)
[2016-10-12] MEDS ORDERED: Phenylephrine 10,000 mCg/mL Inj IVPUSH PRN (08:00)
[2016-10-12] MEDS ORDERED: fentaNYL-PF 50 mCg/mL 2 mL Inj IVPUSH PRN (08:00)
[2016-10-12] MEDS ORDERED: HYDROmorphone 1 mg/mL Inj IVPUSH PRN (08:00)
[2016-10-12] MEDS ORDERED: MetoCLOpramide 5 mg/mL 2 mL Inj IVPUSH PRN (08:00)
[2016-10-12] MEDS ORDERED: Labetalol 5 mg/mL 4 mL Inj IV PRN (08:00)
[2016-10-12] MEDS ORDERED: Albuterol 2.5 mg/3 mL Inhalation Solution NEB PRN (08:00)
[2016-10-12] MEDS ORDERED: oxyCODONE-Acetamin 5-325 mg Tablet PO PRN (08:35)
--- NOTE | 2016-10-12 08:42 | PCM.PODPO ---
Podiatry Operative Report Date of Service: Oct 12, 2016 Date of Service Oct 12, 2016 Pre Operative Diagnosis Chronic pressure ulcer, right heel, stage 3 Post Operative Diagnosis Chronic pressure ulcer, Stage 3, right heel Procedure Excision on ulceration, right heel. Surgeon Surgeon: Celine Carpio DPM Assistants: None Indication for Procedure x Findings x Details of Procedure x Grafts, Implants: None Complications There were no periprocedural complications identified. Condition Stable Anesthetic Administered: MAC Drains: Wound Vac Output, Estimated Blood Loss: 0 Blood Admin during surgery: No Surgical Specimen Removed: No Specimen sent to Pathology: No Attending Statement THIS IS A DUPLICATE DOCUMENT DUE TO COMPUTER ERROR. PLEASE SEE THE FULL DOCUMENT GENERATED ON 10/12/2016. Celine Carpio DPM Oct 12, 2016 08:42
--- NOTE | 2016-10-12 08:50 | PCM.PODPO ---
Podiatry Operative Report Date of Service: Oct 12, 2016 Date of Service Oct 12, 2016 Pre Operative Diagnosis Chronic pressure ulcer, right heel, stage 3 Post Operative Diagnosis Chronic pressure ulcer, Stage 3, right heel Procedure Excision on ulceration, right heel. Surgeon Surgeon: Celine Carpio DPM Assistants: Patty Parrish, CHASITY Indication for Procedure Necrosis, recurrent infection. Preparation for skin grafting. Findings 20% nonviable tissue. Well bleeding base throughout the wound after debridement. Medial abscess resolved, tunnel remains. Details of Procedure The patient was identified in the preoperative holding area and brought back to the operating room. He was placed on the operating table in supine position, with the right leg elevated and externally rotated. IV sedation was initiated. The timeout protocol was completed in the patient's name and site of surgery confirmed. The right heel was anesthetized with 1% lidocaine plain and prepped and draped in usual aseptic manner. A #10 scalpel was used to excise the margins of the existing pressure ulceration, 11.5 x 3 cm in size and 0.5 cm deep. After debridement and excision of all nonviable appearing tissue, the final debridement measurements were 12 cm x 3.5 cm in size and 1 cm deep, and medial tunnel is present to an egress wound measuring approximately 3 cm deep. The dressed wound itself is 1 cm x 1 cm in size and communicating with the plantar heel ulceration. There was no purulence, no odor. No necrosis. Nonviable tissue, however was encountered in the center of the ulceration, with granulation tissue was not yet present. All margins bled adequately. Cautery was used to stop the bleeding where necessary. The wound was irrigated with normal saline with gentamicin, with pulse lavage, reduced pressure setting. The patient's wound was then dressed with a black granular foam and a white foam into the tunnel, connected to the wound VAC at 125 mmHg continuous negative pressure. The wound VAC dressing was attached and overwrapped with Kerlix. A troughed portion of foam was placed over the bony prominence to allow for tubing to be kept away from the skin. The patient was weaned off of sedation and taken to the PACU with vital signs stable and the vascular status to the right foot appearing intact for wound healing. Second stage of the procedure will be performed on Sunday, most likely at bedside. The third stage of the procedure, they expected wound VAC removal and skin graft is planned for 10/17/2016. Grafts, Implants: None Complications There were no periprocedural complications identified. Condition Stable Anesthetic Administered: MAC Drains: Wound Vac Catheters: None Output, Estimated Blood Loss: 20 (ml) Blood Admin during surgery: No Surgical Cast or Splint: None Surgical Specimen Removed: No Specimen sent to Pathology: No Post Operative Plan Nonweightbearing on the right heel, inpatient stay for gradual debridement every 48 hours, in preparation for skin grafting, tentatively 10/17/2016. IV and by mouth pain medication has been ordered. Wound VAC therapy at 125 mmHg , to be changed every 48 hours. IV antibiotics, Ancef, as previously ordered by nephrology, after each dialysis treatment, dosing to be determined by nephrology. The patient will require dialysis tomorrow. Celine Carpio DPM Oct 12, 2016 08:50
[2016-10-12] MEDS ORDERED: fentaNYL-PF 50 mCg/mL 2 mL Inj ONE (09:49)
[2016-10-12] MEDS ORDERED: Propofol 10,000 mCg/mL 20 mL Inj ONE (09:49)
[2016-10-12] MEDS ORDERED: Phenylephrine/NS 100 mCg/mL 10 mL Syringe IVPUSH ONE (09:49)
--- NOTE | 2016-10-12 10:18 | PCM.ANEP1 ---
Post Anesthesia PACU Phase 1 Assessment Date of Service: Oct 12, 2016 Vital Signs Vital Signs Date Time Temp Pulse Resp B/P Pulse Ox O2 Delivery O2 Flow Rate FiO2 10/12/16 09:30 36.7 70 18 127/80 96 Room Air 10/12/16 09:00 36.3 70 16 113/58 96 Room Air 10/12/16 08:45 74 16 113/60 95 Room Air 10/12/16 08:40 72 13 108/62 93 Room Air 10/12/16 08:35 68 13 99/56 93 Room Air 10/12/16 08:33 36.4 68 11 96/57 95 Room Air 10/12/16 06:12 36.5 79 17 117/62 96 Room Air Anesthetic Administered: MAC Level of Alertness: Awake, talking GUERRA's with Equal Strength: Yes Pain: No Nausea or Vomiting: No CV Function & Hydration Stable: Yes Airway Device: none Oxygen Delivery: Room Air Lungs: Clear to Auscultation, Normal Air Movement Dermatome Level: Full Sensation (baseline) PACU Phase 2 Assessment Complications: No Follow up Care: No Patient Instructions Provided: N/A Niall Salinas MD Oct 12, 2016 10:18
--- NOTE | 2016-10-12 11:00 | PCM.CHPMED ---
Subjective Date of Service: Oct 12, 2016 Provider requesting consult: Celine Carpio DPM Primary Physician: Admitting Physician: Celine Carpio DPM Primary Care Physician: Olu Person MD Attending Physician: Celine Carpio DPM Chief Complaint: Chief Complaint: medical management post-op course History of Present Illness: 64 year old male with ESRD, Diabetic, Hypertension, Hypothyroidism, PVD, necrotic heel ulcer with DM Hospitalist service was consulted for medical management of this patient as per . Patient underwent I&D of Rt necrotic heel ulcer by today. No immediate post-op complications reported per . Labs today still pending. FSG this AM was 156, pt didn't receive his lantus, usually get 25unit in the morning, uses short acting premeals 5 or 10unit Pt was seen at the bedside on the floor, pt denied any complaints after surgery , denied fever, chills, sob, cough, has mild pain on surgical wound. PMH Past Medical History PMH Diabetes mellitus type 2 CAD PVD with claudication Hypothyroidism Chronic anemia Hypertension Hyperlipidemia Endstage Renal Disease on hemodialysis Pressure ulcers Right eye cataract s/p enucleation and prosthesis Surgical History AV fistula on September 2013 Left great toe amputation Right eye enucleation and prosthesis Family History Father with DM and MD at age 81 Mother with cataracts Social History Hx Alcohol Use: No Hx Substance Use: No Hx Tobacco Use: Yes (quit approx 8 yrs ago) Smoking Status: Former Smoker Living Arrangement: with Family Bedside Blood Glucose: 154 Allergies: Coded Allergies: barium sulfate (Verified Allergy, Severe, severe swelling, 10/10/16) Uncoded Allergies: KAEXYLATE (Allergy, Mild, Hives, 07/03/16) Social History Hx Alcohol Use: NoHx Substance Use: NoHx Tobacco Use: Yes (quit approx 8 yrs ago) Smoking Status: Former Smoker Exam Vital Signs Vital Sign - Last Date Time Temp Pulse Resp B/P Pulse Ox O2 Delivery O2 Flow Rate FiO2 10/12/16 10:18 Room Air 10/12/16 09:30 36.7 70 18 127/80 96 Additional Information: NAD, comfortablely laying down on bed, RRR nl s1 s2 no mrg CTAB no w,c S,ND,NT,BS+ Rt heel, sterilely dressed Lab and Diagnostics Result Diagram: 10/12/16 0611 Assessment & Plan Assessment acute, active, Rt heel necrotic ulcer, POA, pt underwent I&D by on 10/11 in OR, tolerated. Wound vac in place. -management per , plan to perform serial debridement for several days in house, probable skin graft in the long run. -pain control, abx on cefazolin per chronic, presumed stable #Diabetes mellitus type 2, last a1c on the system 7.7 in 2013, -awaits BMP, a1c, -will give 10unit lantus today AM, continue lantus 25unit tomorrow AM, lispro SS , aim for glc <180s -diabetic diet #Endstage Renal Disease on dialysis with renal osteodystrophy, - is aware, continue HD as scheduled, tomorrow -continue midodrine, 10mg bid, Sensipar 60mg qhs #PVD, Coronary Artery Disease, continue plavix unless it's contraindicated in post-op course. #Hypothyroidism, continue levothyroxine 125mcg PO daily, will check TFTs to ensure euthyroid state #Hypertension, diet controlled #Hyperlipidemia, continue Atorvastatin 10mg PO daily Hospitalist service will continue to follow on daily basis, please feel free to contact if any questions or concerns. Problems: Time spent 65min Sri Reynolds MD Oct 12, 2016 11:00
[2016-10-12] MEDS ORDERED: Glucose 40% Oral Gel 15 Gm Tube PO PRN (11:05)
[2016-10-12] MEDS ORDERED: Insulin GLARgine 100 Unit/mL Syringe SUBQ ONE (11:15)
[2016-10-12] MEDS ORDERED: Dextrose 10% 250 ML IV PRN (11:20)
--- NOTE | 2016-10-12 11:39 | PCM.CHPMED ---
Subjective Date of Service: Oct 12, 2016 Primary Physician: Admitting Physician: Celine Carpio DPM Primary Care Physician: Olu Person MD Attending Physician: Celine Carpio DPM Chief Complaint: Chief Complaint: ESRD History of Present Illness: Mr. Fischer is a 65-year-old male with past medical history of ESRD on HD Sunday, diabetes mellitus, hypertension, hypothyroidism, peripheral vascular disease who was admitted to hospital after receiving incision and drainage surgery by podiatry for a necrotic left heel ulcer. Patient's chief analytics officer is Dr. Wilson and is currently seen in the dialysis center 3 times per week. He states that despite being and uric he never has fluid taken off he only has his blood filtered. He denies drinking any fluids stating that he sustains his nutritional needs through a diet which consists primarily of steak and eggs with some veggies and no fluid intake, patient has been anuric for 3+ months. He states that he recently received a right subclavian port on Sunday and he is due to receive a fistula placement in the next month. Currently he reports no pain or discomfort status post I&D surgery, denies chest pain, shortness of breath, abdominal pain, flank pain, headache, nausea vomiting fever or chills. Though patient is somewhat groggy from sedation received during surgery and current pain medications. Attending nephrology: He has a 2 years hx of ESRD secondary to DM, he normally dialyzes 3x/wk --, last HD yesterday. Review of Systems: A comprehensive review of systems was conducted with the patient and found to be negative except as above in the history of present illness. PMH Past Medical History Diabetes mellitus type 2 CAD PVD with claudication Hypothyroidism Chronic anemia Hypertension Hyperlipidemia Endstage Renal Disease on hemodialysis Pressure ulcers Right eye cataract s/p enucleation and prosthesis Bedside Blood Glucose: 154 Surgical History AV fistula on September 2013 Left great toe amputation Right eye enucleation and prosthesis Home Medications Her outpatient records home medications include: Midodrine Plavix Sensipar Atorvastatin Levothyroxine Novolin Lantus Allergies: Coded Allergies: barium sulfate (Verified Allergy, Severe, severe swelling, 10/10/16) Uncoded Allergies: KAEXYLATE (Allergy, Mild, Hives, 07/03/16) Family History Family History Father with DM and MA at age 81 Mother with cataracts Social History Hx Alcohol Use: NoHx Substance Use: NoHx Tobacco Use: Yes (quit approx 8 yrs ago) Smoking Status: Former Smoker Exam Vital Signs Vital Sign - Last Date Time Temp Pulse Resp B/P Pulse Ox O2 Delivery O2 Flow Rate FiO2 10/12/16 10:18 Room Air 10/12/16 09:30 36.7 70 18 127/80 96 General: Awake and alert lying in hospital bed in no acute distress, well- developed, well-nourished, appropriately interactive though somewhat slurred and prolonged speech secondary to sedation. present at bedside HEENT: Normocephalic, atraumatic. External ears without defect. Pupils equal, round, and reactive to light and accommodation. Right eyelid droop. Anicteric sclerae, moist conjunctivae, and no lid lag. Oropharynx free of erythema and cobble stoning with moist mucosa. Neck: Supple with full range of motion. No jugular venous distension. Cardiovascular: Regular rate and rhythm with no murmurs, rubs, or gallops appreciated Pulmonary: Clear to auscultation bilaterally with no crackles. Normal respiratory effort with no use of accessory muscles. Abdomen: Bowel tones present. Soft, nontender, nondistended. Extremities: No clubbing, cyanosis, bandage wrapped around right heel with wound VAC in place. Skin: Normal temperature, turgor, and texture Psychiatric: Normal mood and affect. Lab and Diagnostics Result Diagram: 10/12/16 0611 Assessment & Plan Assessment End-stage renal disease on hemodialysis with renal osteodystrophy - Scheduled for hemodialysis tomorrow - Continue midodrine - Labs pending - Antibiotics postdialysis - Currently on LR 120 per hour status post surgery Diabetes mellitus type II. Uncontrolled -Last A1c's are 05/22/2016 9.6. -Hospital team to dose insulin Hypertension -Currently hemogram stable, episodes of hypotension -Continue to monitor -IVF as above Problems: Attending Statement Nephrolog attending: Pt. seen and examined, I have reviewed and ammended Dr. Mora's note, I agree with finding and plan. He is schedule for dialysis tomorrow morning and will be run w/o heparin. DONA MORA DO Oct 12, 2016 11:04 Parag Bradshaw DO Oct 12, 2016 13:14
[2016-10-12] MEDS: Insulin LISPRO 300 Unit/3 mL Inj SUBQ SCH ×3 (12:00→22:13)
--- NOTE | 2016-10-12 14:20 | NUR ---
POST-OP Patient received from PACU via a gurney. Transferred independently in bed. Patient has a woundvac in his R foot. Dressing is CDI. Woundvac is functioning without any issues. Patient denies pain/nausea/SOB. Complains of numbness in his feet, which is not new per patient. HX: Neuropathy. Able to wiggle toes. Oriented to room and call light.
[2016-10-12] MEDS ORDERED: 0.9% Sodium Chloride 250 ML ONE (14:33)
[2016-10-12] MEDS ORDERED: Insulin GLARgine 100 Unit/mL Syringe SUBQ SCH (21:00)
[2016-10-13 01:20] VITALS: BP 110/61; PULSE 89; RESP 18; O2SAT 92
--- NOTE | 2016-10-13 04:45 | NUR ---
Blood Glucose levels Patient's blood sugar were 214 at 2200 amd 336 at 0330. Patient did not exhibit any signs or symptoms of hyperglycemia. Patient alert and orients. No complaints of pain. Patient cooperative with care. Call light within reach. Care continues.
[2016-10-13 05:51] VITALS: BP 127/69; PULSE 76; RESP 18; O2SAT 92
[2016-10-13 06:13] LABS: BASOPHILS % (AUTO) 0.8 % (0-3); EOSINOPHILS % (AUTO) 4.5 % (0-5); MONOCYTES % (AUTO) 10.9 % (4-12); Mean Corpuscular Volume 102.1 fL (81-100); NEUTROPHILS % (AUTO) 59.1 % (40-74); Platelet Count 342 bil/L (150-400)
[2016-10-13 06:32] LABS: Magnesium 1.9 mg/dL (1.6-2.6)
[2016-10-13] MEDS ORDERED: Insulin GLARgine 100 Unit/mL Syringe SUBQ ONE (07:15)
[2016-10-13 07:45] VITALS: BP 124/60; PULSE 75; RESP 16; O2SAT 94
[2016-10-13] MEDS: Insulin LISPRO 300 Unit/3 mL Inj SUBQ SCH ×5 (07:50→22:27)
[2016-10-13] MEDS: Insulin GLARgine 100 Unit/mL Syringe SUBQ SCH (07:51)
[2016-10-13 08:15] VITALS: BP 128/74; PULSE 74
--- NOTE | 2016-10-13 08:38 | NUR ---
Pt arrived to [facility]: Pt arrived to [facility] for dialysis treatment. Pt appears stable at time of transfer. Report obtained from Kofi Gupta RN. Addendum: 10/13/16 at 1301 by GER SALGADO RN Pt returned to [facility]. Report given to Kofi Gupta RN by jhonatan Arroyo. Pt appeared stable at time of transfer.
--- NOTE | 2016-10-13 11:52 | PCM.PNMED ---
Subjective Date of Service Oct 13, 2016 Subjective fsg was over 400 this AM additional 5unit lantus given plus 25unit normal dose pt denied any complaints, due to HD today Exam Vital Signs Vital Sign - Last Date Time Temp Pulse Resp B/P Pulse Ox O2 Delivery O2 Flow Rate FiO2 10/13/16 07:45 36.9 75 16 124/60 94 Room Air Intake and Output 10/12/16 10/12/16 10/13/16 Cumulative From/Thru 15:00 23:00 07:00 10/09/16 14:53 - 10/13/16 06:34 Intake Total 150 ml 0 ml 350 ml 500 ml Output Total 20 ml 0 ml 0 ml 20 ml Balance 130 ml 0 ml 350 ml 480 ml Intake Oral 0 ml 350 ml 350 ml IV Total 150 ml 150 ml Output Urine Total 0 ml 0 ml 0 ml Estimated Blood Loss 20 ml 20 ml # Bowel Movements 1 1 Exam NAD, comfortablely laying down on bed, RRR nl s1 s2 no mrg CTAB no w,c S,ND,NT,BS+ Rt heel, sterilely dressed, on Wound Vac IVs and Medications Medications Reviewed: Medications were reviewed in detail Lab and Diagnostics Result Diagram: 10/13/1655410/13/16554 Assessment & Plan acute, active, Rt heel necrotic ulcer, POA, pt underwent I&D by on 10/11 in OR, tolerated. Wound vac in place. -management per , plan to perform serial debridement for several days in house, probable skin graft in the long run. -pain control, abx on cefazolin per uncontrolled DM, POA, glc in cmp>400, pt received reduced dose 10unit yesterday. 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 #Hypothyroidism, continue levothyroxine 125mcg PO daily, will check TFTs to ensure euthyroid state #Hypertension, diet controlled #Hyperlipidemia, continue Atorvastatin 10mg PO daily Hospitalist service will continue to follow on daily basis, please feel free to contact if any questions or concerns. Time spent 35min Sri Reynolds MD Oct 13, 2016 11:52
--- NOTE | 2016-10-13 12:07 | PCM.PNNEPH ---
Subjective Date of Service Oct 13, 2016 Subjective Mr. Fischer continues to do well today. He is tolerating his diet and denies any headache, chest pain, or shortness of breath. Exam Vital Signs Vital Sign - Last Date Time Temp Pulse Resp B/P Pulse Ox O2 Delivery O2 Flow Rate FiO2 10/13/16 07:45 36.9 75 16 124/60 94 Room Air Intake and Output 10/12/16 10/12/16 10/13/16 Cumulative From/Thru 15:00 23:00 07:00 10/09/16 14:53 - 10/13/16 06:34 Intake Total 150 ml 0 ml 350 ml 500 ml Output Total 20 ml 0 ml 0 ml 20 ml Balance 130 ml 0 ml 350 ml 480 ml Intake Oral 0 ml 350 ml 350 ml IV Total 150 ml 150 ml Output Urine Total 0 ml 0 ml 0 ml Estimated Blood Loss 20 ml 20 ml # Bowel Movements 1 1 Exam Lungs are clear to auscultation. Heart is regular and rhythmical with a soft systolic murmur. Abdomen soft without any tenderness rebound guarding masses or hepatosplenomegaly. Extremities Show Any Evidence of Any Clubbing, Cyanosis , or Edema. Lab and Diagnostics Result Diagram: 10/13/16 0555 10/13/16 0555 Plan Impression Impression #1 end-stage renal disease dialysis dependent Recommendation #1 the patient will be dialyzed for 4 hours on a standard dialyzer, 2 potassium bath, 400 blood flow 600 dialysate flow, no heparin, and will take about 300 and also fluid off. Parag Bradshaw DO Oct 13, 2016 12:07
--- NOTE | 2016-10-13 12:52 | NUR ---
Dialysis note: 4 hr tx Net UF 0.0 Right Cath; QB 425 Dresg CDI No heparin used during tx System clotted and changed, tx resumed Pt stable throughout tx Report given to primary RNKarla Pt returned to floor stable Please see DTR for complete record of VS
--- NOTE | 2016-10-13 16:54 | NUR ---
blood sugars and mobility. Pt with elevated BS this AM. 412 on morning check. Spoke with MD and gave pt 25 lantus as ordered as well as 5 units lispro for elevated sugar even though pt not eating breakfast (off to dialysis). After returning from dialysis, BS was in the 90's there and 118 prior to lunch after pt ate an applesauce. No SSI given. Pt had a bag of cheetos on his bed that he ate prior to dinner. did not check BS prior to eating. Pt was working with PT, unable to maintain nonweightbearing on R heel, pt now up with PT only. placed pt on newton bed alarm.
--- NOTE | 2016-10-13 17:23 | NUR ---
Up w/PT only; unable to maintain non WBing on heel
--- NOTE | 2016-10-13 21:12 | PCM.PNPOD ---
Subjective Date of Service: Oct 13, 2016 Visit Information: Reason for Visit Necrotic Ulcer Right Heel With Type 2 Diabetes And Surgery/Surgery Date DEBRIDMENT OF R HEEL ULCER 10/12/16 Post-Op Day # 1 Date of Admission: Oct 12, 2016 at 09:48 Hospital Day # 1 Postop General: No Complaints Gastrointestinal: Good Appetite Pain Management: No or Minimal Pain Neurological: Numbness Postop Activity: Ambulate with Assist Objective Vital Sign - Last Date Time Temp Pulse Resp B/P Pulse Ox O2 Delivery O2 Flow Rate FiO2 10/13/16 08:15 74 10/13/16 07:45 36.9 16 124/60 94 Room Air Intake and Output 10/12/16 10/12/16 10/13/16 Cumulative From/Thru 15:00 23:00 07:00 10/09/16 14:53 - 10/13/16 06:34 Intake Total 150 ml 0 ml 350 ml 500 ml Output Total 20 ml 0 ml 0 ml 20 ml Balance 130 ml 0 ml 350 ml 480 ml Intake Oral 0 ml 350 ml 350 ml IV Total 150 ml 150 ml Output Urine Total 0 ml 0 ml 0 ml Estimated Blood Loss 20 ml 20 ml # Bowel Movements 1 1 Result Diagram: 10/13/16 0555 10/13/16 0555 Lab Test 10/12/16 06:11 10/13/16 05:55 Thyroid Stimulating Hormone (TSH) 20.400uIU/mL (0.450-4.500) Free Thyroxine 1.26ng/dL (0.82-1.77) White Blood Count 9.0th/mm3 (3.8-10.1) Red Blood Count 3.38mil/mm3 (4.40-5.80) Hemoglobin 10.8g/dL (13.8-17.2) Hematocrit 34.5% (41.0-50.0) Mean Corpuscular Volume 102.1fL (81-100) Mean Corpuscular Hemoglobin 32.0pg (27.0-35.0) Mean Corpuscular Hemoglobin Concent 31.3% (32.0-37.0) Red Cell Distribution Width 13.8% (12.3-15.4) Platelet Count 342bil/L (150-400) Neutrophils (%) (Auto) 59.1% (40-74) Lymphocytes (%) (Auto) 23.6% (14-46) Monocytes (%) (Auto) 10.9% (4-12) Eosinophils (%) (Auto) 4.5% (0-5) Basophils (%) (Auto) 0.8% (0-3) Sodium Level 138mEq/L (134-144) Potassium Level 5.4mEq/L (3.5-5.2) Chloride Level 92mEq/L (97-108) Carbon Dioxide Level 30mmol/L (18-29) Blood Urea Nitrogen 35mg/dL (8-27) Creatinine 8.25mg/dL (0.76-1.27) Estimat Glomerular Filtration Rate 7mL/min (>59) Glucose Level 415mg/dL (60-99) Calcium Level 8.1mg/dL (8.5-10.1) Magnesium Level 1.9mg/dL (1.6-2.6) Total Bilirubin 0.2mg/dL (0.0-1.2) Aspartate Amino Transf (AST/SGOT) 14U/L (0-50) Alanine Aminotransferase (ALT/SGPT) 5U/L (0-44) Alkaline Phosphatase 119U/L (25-160) Total Protein 6.5g/dL (6.4-8.4) Albumin 2.9g/dL (3.4-5.0) Exam Lungs: Clear to Auscultation, Normal Air Movement Cardiac: Regular Rate/Rhythm Lower Extremities: Right: Edema localized (heel, ankle) Lower Extremity Pulses: Doppler: Left Dorsalis Pedis Left Posterior Tibal Right Dorsalis Pedis Right Posterior Tibal Postop Sensory Motor: Distal Motor Intact Podiatry WOUND : Incision General Appearence: Wound Vac (two leaks reinforced overnight. ) Surgical Cast or Splint: None Additional Information: Significant restless legs syndrome demonstrated under anesthesia and disheveled dressing found on right foot today. Assessment & Plan Problems: (1) Pressure ulcer of right heel, stage 3 Plan: Wound VAC change and wound assessment for possible grafting will be done tomorrow. I now understand why his wound VAC dressing outpatient always resulted in periwound maceration and reinfection. His restless legs cause discontinuation of negative pressure. It is important to continue inpatient treatment to ensure success with skin grafting and limb salvage. Status: Acute ICD Code: L89.613 (2) Wound infection Plan: Ancef to continue after dialysis until Skin graft has taken at least one week. Significant hyperglycemia after surgery. Hospitalist team on board to manage. Status: Acute ICD Code: T14.8 (3) Hyperkalemia Plan: Inpatient dialysis on regular -SUN-SUN schedule and additional treatments as needed. Dr. Bradshaw consulted to manage. Status: Acute ICD Code: E87.5 Celine Carpio DPM Oct 13, 2016 21:12
[2016-10-13 21:48] VITALS: BP 128/72; PULSE 67; RESP 18; O2SAT 95
[2016-10-14] MEDS ORDERED: Glucose 40% Oral Gel 15 Gm Tube PO PRN ×2 (04:05→08:10)
[2016-10-14] MEDS ORDERED: Insulin LISPRO 300 Unit/3 mL Inj SUBQ SCH (04:05)
--- NOTE | 2016-10-14 05:09 | NUR ---
BLOOD GLUCOSE: Pt's BG has been elevated. 430 at hs and 456 at 0300. Spoke with hospitalist, changed insulin from low dose alg. to high dose alg. gave 12 units of Lispro at 0430 for a BG of 456. Pt. also states "It is going to be high because I ate", he has been munching most of the time during the evening before HS. No void tonight. Denies pain. No c/o discomfort. On going care.
[2016-10-14 05:26] VITALS: BP 93/60; PULSE 82; RESP 16; O2SAT 92
[2016-10-14 06:33] LABS: BASOPHILS % (AUTO) 0.7 % (0-3); EOSINOPHILS % (AUTO) 5.4 % (0-5); MONOCYTES % (AUTO) 10.6 % (4-12); Mean Corpuscular Hemoglobin 31.8 pg (27.0-35.0); Mean Corpuscular Volume 101.5 fL (81-100); NEUTROPHILS % (AUTO) 55.2 % (40-74); Platelet Count 330 bil/L (150-400)
[2016-10-14] MEDS ORDERED: Insulin Human REGular Inj 100 UNIT in 0.9% Sodium Chloride-Pha MIX 100 ML IV SCH (07:54)
[2016-10-14] MEDS: Insulin GLARgine 100 Unit/mL Syringe SUBQ SCH (08:01)
[2016-10-14] MEDS ORDERED: Dextrose 10% 250 ML IV PRN (08:05)
[2016-10-14] MEDS: CeFAZolin Inj 2 GM in IV Premix 1 EACH IV SCH (08:23)
[2016-10-14] MEDS ORDERED: Insulin GLARgine 100 Unit/mL Syringe SUBQ ONE (08:35)
--- NOTE | 2016-10-14 11:31 | PCM.PNNEPH ---
Subjective Date of Service Oct 14, 2016 Subjective The patient continues to do well postoperatively. He denies any headache, chest pain, nausea or vomiting or anorexia. He states she does not have much pain in his foot. Exam Vital Signs Vital Sign - Last Date Time Temp Pulse Resp B/P Pulse Ox O2 Delivery O2 Flow Rate FiO2 10/14/16 05:26 36.6 82 16 93/60 92 Room Air Intake and Output 10/13/16 10/13/16 10/14/16 Cumulative From/Thru 15:00 23:00 07:00 10/09/16 14:53 - 10/14/16 06:12 Intake Total 0 ml 200 ml 700 ml Output Total 0 ml 0 ml 0 ml 20 ml Balance 0 ml 0 ml 200 ml 680 ml Intake Oral 0 ml 200 ml 550 ml IV Total 150 ml Output Urine Total 0 ml 0 ml 0 ml Ultrafiltrate 0 ml 0 ml Estimated Blood Loss 20 ml # Bowel Movements 0 1 Exam Lungs are clear to auscultation. Heart was regular and rhythmical with a soft systolic murmur. Abdomen soft without any tenderness rebound guarding masses or hepatosplenomegaly. Extremities did not show any evidence of any clubbing cyanosis or edema. Skin turgor is good. Lab and Diagnostics Result Diagram: 10/14/16 0610 10/14/16 0610 Plan Impression Impression #1 end-stage renal disease dialysis dependent #2 hypertension with hypertensive heart disease and hypertensive nephrosclerosis #3 diabetic nephropathy and diabetic foot ulcer status post debridement Recommendations #1 from my point of view he can be discharged whenever dietary on just their approval. Parag Bradshaw DO Oct 14, 2016 11:31
[2016-10-14] MEDS: Insulin LISPRO 300 Unit/3 mL Inj SUBQ SCH ×3 (11:56→21:18)
--- NOTE | 2016-10-14 14:36 | NUR ---
NURSING DAYS 7-7 LABS- Cr 6.07 (expected value) NEURO- LOC X4 CVS BP 98/60 denies chest pain PLUM- RA, noncompliant with CPAP GI- BG 285 and 221 so far today, denies nausea. SKIN- Dr Carpio in redress right heal, appears good granulation PAIN- Denies IV- S/L, tunnel chest for dialysis M/W/F PLAN- Skin graft Tue (Dr Carpio), better blood sugar control and protein increase for wound healing.
--- NOTE | 2016-10-14 16:16 | PCM.PNMED ---
Subjective Date of Service Oct 14, 2016 Subjective no overnight event, pt still hyperglycemic 400s, but 300s at 4am, and 289 at 8am after 12units lispro given awaits for possible surgery 25unit lantus given, Exam Vital Signs Vital Sign - Last Date Time Temp Pulse Resp B/P Pulse Ox O2 Delivery O2 Flow Rate FiO2 10/14/16 05:26 36.6 82 16 93/60 92 Room Air Intake and Output 10/13/16 10/13/16 10/14/16 Cumulative From/Thru 15:00 23:00 07:00 10/09/16 14:53 - 10/14/16 06:12 Intake Total 0 ml 200 ml 700 ml Output Total 0 ml 0 ml 0 ml 20 ml Balance 0 ml 0 ml 200 ml 680 ml Intake Oral 0 ml 200 ml 550 ml IV Total 150 ml Output Urine Total 0 ml 0 ml 0 ml Ultrafiltrate 0 ml 0 ml Estimated Blood Loss 20 ml # Bowel Movements 0 1 Exam NAD, comfortablely laying down on bed, RRR nl s1 s2 no mrg CTAB no w,c S,ND,NT,BS+ Rt heel, sterilely dressed, on Wound Vac IVs and Medications Medications Reviewed: Medications were reviewed in detail Lab and Diagnostics Result Diagram: 10/14/16 0610 10/14/16 0610 Assessment & Plan acute, active, Rt heel necrotic ulcer, POA, pt underwent I&D by on 10/11 in OR, tolerated. Wound vac in place. 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 #Hypothyroidism, continue levothyroxine 125mcg PO daily, will check TFTs to ensure euthyroid state #Hypertension, diet controlled #Hyperlipidemia, continue Atorvastatin 10mg PO daily Hospitalist service will continue to follow on daily basis, please feel free to contact if any questions or concerns. Time spent 35min Sri Reynolds MD Oct 14, 2016 08:09
[2016-10-14 17:10] VITALS: BP 119/62; PULSE 72; RESP 18; O2SAT 89
--- NOTE | 2016-10-14 17:35 | PCM.PNPOD ---
Subjective Date of Service: Oct 14, 2016 Visit Information: Reason for Visit Necrotic Ulcer Right Heel With Type 2 Diabetes And Surgery/Surgery Date DEBRIDMENT OF R HEEL ULCER 10/12/16 Post-Op Day # Date of Admission: Oct 12, 2016 at 09:48 Hospital Day # Subjective: The patient states that he is having trouble complying with physical therapy to stay off of his right heel. A lot of this has to do with neuropathy, restless legs, and difficulty with the location of the ulceration and surgical treatment. He was able to keep the cover dressing intact since yesterday. He is asking for shoe to be outfitted so that it can take the pressure off of the ulcerated area. He is unable to stay completely nonweightbearing on. Postop General: No Complaints Gastrointestinal: Good Appetite (the patient is having trouble with blood glucose control.) Pain Management: No or Minimal Pain Neurological: Numbness Objective Vital Sign - Last Date Time Temp Pulse Resp B/P Pulse Ox O2 Delivery O2 Flow Rate FiO2 10/14/16 17:10 36.7 72 18 119/62 89 Room Air Intake and Output 10/13/16 10/13/16 10/14/16 Cumulative From/Thru 14:59 22:59 06:59 10/09/16 14:53 - 10/14/16 06:12 Intake Total 0 ml 200 ml 700 ml Output Total 0 ml 0 ml 0 ml 20 ml Balance 0 ml 0 ml 200 ml 680 ml Intake Oral 0 ml 200 ml 550 ml IV Total 150 ml Output Urine Total 0 ml 0 ml 0 ml Ultrafiltrate 0 ml 0 ml Estimated Blood Loss 20 ml # Bowel Movements 0 1 Result Diagram: 10/14/16 0610 10/14/16 0610 Lab Test 10/12/16 06:11 10/13/16 05:55 10/14/16 06:10 Thyroid Stimulating Hormone (TSH) 20.400uIU/mL (0.450-4.500) Free Thyroxine 1.26ng/dL (0.82-1.77) Hemoglobin A1c 9.0% (4.8-5.6) Magnesium Level 1.9mg/dL (1.6-2.6) Total Bilirubin 0.2mg/dL (0.0-1.2) Aspartate Amino Transf (AST/SGOT) 14U/L (0-50) Alanine Aminotransferase (ALT/SGPT) 5U/L (0-44) Alkaline Phosphatase 119U/L (25-160) Total Protein 6.5g/dL (6.4-8.4) Albumin 2.9g/dL (3.4-5.0) White Blood Count 7.4th/mm3 (3.8-10.1) Red Blood Count 3.30mil/mm3 (4.40-5.80) Hemoglobin 10.5g/dL (13.8-17.2) Hematocrit 33.5% (41.0-50.0) Mean Corpuscular Volume 101.5fL (81-100) Mean Corpuscular Hemoglobin 31.8pg (27.0-35.0) Mean Corpuscular Hemoglobin Concent 31.3% (32.0-37.0) Red Cell Distribution Width 13.5% (12.3-15.4) Platelet Count 330bil/L (150-400) Neutrophils (%) (Auto) 55.2% (40-74) Lymphocytes (%) (Auto) 27.0% (14-46) Monocytes (%) (Auto) 10.6% (4-12) Eosinophils (%) (Auto) 5.4% (0-5) Basophils (%) (Auto) 0.7% (0-3) Sodium Level 139mEq/L (134-144) Potassium Level 4.1mEq/L (3.5-5.2) Chloride Level 92mEq/L (97-108) Carbon Dioxide Level 33mmol/L (18-29) Blood Urea Nitrogen 25mg/dL (8-27) Creatinine 6.07mg/dL (0.76-1.27) Estimat Glomerular Filtration Rate 10mL/min (>59) Glucose Level 414mg/dL (60-99) Calcium Level 8.0mg/dL (8.5-10.1) Exam Lungs: Clear to Auscultation, Normal Air Movement Cardiac: Regular Rate/Rhythm Lower Extremities: Right: Edema localized (heel, ankle, improving) Lower Extremity Pulses: Doppler: Left Dorsalis Pedis Left Posterior Tibal Right Dorsalis Pedis Right Posterior Tibal Postop Sensory Motor: Distal Motor Intact Podiatry WOUND : Wound Location/Description Postop wound, right heel, 11 cm x 3.5 cm in size, granulating in. The medial 3 cm tunnel is slowly granulating in, but there is some necrotic tissue at the egress. Approximately 85% of the wound is covered and granulation tissue now. Besides the tunnel, the maximum depth is 7 mm. Surgical Cast or Splint: None Assessment & Plan Problems: (1) Pressure ulcer of right heel, stage 3 Plan: Wound VAC change and wound assessment was done today. Additional debridement of subcutaneous soft tissue was performed at the level of the tunnel this increased the depth to 0.9 cm from 0.7 cm, but the overall wound size did not change. I anticipate another wound VAC change on Sunday. The patient will be taken back to the operating room on Sunday for skin grafting. Status: Acute ICD Code: L89.613 (2) Wound infection Plan: Ancef to continue after dialysis until Skin graft has taken at least one week. Significant hyperglycemia after surgery. Hospitalist team on board to manage. Status: Acute ICD Code: T14.8 (3) Hyperkalemia Plan: Inpatient dialysis on regular -SUN-SUN schedule and additional treatments as needed. Dr. Bradshaw consulted to manage. Status: Acute ICD Code: E87.5 Celine Carpio DPM Oct 14, 2016 17:34
[2016-10-14 20:19] VITALS: BP 120/71; PULSE 71; RESP 18; O2SAT 91
--- NOTE | 2016-10-15 03:40 | NUR ---
Activity Pt. has been sleeping throughout most of the night, and has not requested anything for pain. Pt. was placed on pulse oximetry, and started to destat down to 85% while sleeping. Pt. placed on 2 liters of oxygen via nc, and has been able to stay above 92%. Will continue to monitor.
[2016-10-15 05:07] VITALS: BP 117/69; PULSE 66; RESP 18; O2SAT 98
[2016-10-15 06:36] LABS: BASOPHILS % (AUTO) 0.6 % (0-3); EOSINOPHILS % (AUTO) 5.7 % (0-5); MONOCYTES % (AUTO) 11.5 % (4-12); Mean Corpuscular Hemoglobin 31.9 pg (27.0-35.0); Mean Corpuscular Volume 101.1 fL (81-100); NEUTROPHILS % (AUTO) 56.3 % (40-74); Platelet Count 340 bil/L (150-400)
[2016-10-15 06:58] LABS: Magnesium 1.9 mg/dL (1.6-2.6)
--- NOTE | 2016-10-15 07:51 | NUR ---
Creatinine Per lab Creatinine 8.34 this morning; will make MD aware in rounds, Care ongoing.
[2016-10-15] MEDS: Insulin LISPRO 300 Unit/3 mL Inj SUBQ SCH ×4 (08:00→21:17)
[2016-10-15 08:04] VITALS: BP 122/70; PULSE 64; RESP 18; O2SAT 91
[2016-10-15] MEDS: Insulin GLARgine 100 Unit/mL Syringe SUBQ SCH (10:07)
--- NOTE | 2016-10-15 10:43 | PCM.PNMED ---
Subjective Date of Service Oct 15, 2016 Subjective pt is doing well, glc better controlled 200s with added lantus. plan for grafting on next Sun per Exam Vital Signs Vital Sign - Last Date Time Temp Pulse Resp B/P Pulse Ox O2 Delivery O2 Flow Rate FiO2 10/15/16 08:35 Supplement Oxygen 10/15/16 08:04 37.0 64 18 122/70 91 Intake and Output 10/14/16 10/14/16 10/15/16 Cumulative From/Thru 15:00 23:00 07:00 10/09/16 14:53 - 10/15/16 01:27 Intake Total 700 ml Output Total 20 ml Balance 680 ml Intake Oral 550 ml IV Total 150 ml Output Urine Total 0 ml Ultrafiltrate 0 ml Estimated Blood Loss 20 ml # Bowel Movements 1 Exam NAD, comfortablely laying down on bed, RRR nl s1 s2 no mrg CTAB no w,c S,ND,NT,BS+ Rt heel, sterilely dressed, on Wound Vac IVs and Medications Medications Reviewed: Medications were reviewed in detail Lab and Diagnostics Result Diagram: 10/15/16 0600 10/15/16 0600 Assessment & Plan acute, active, Rt heel necrotic ulcer, POA, pt underwent I&D by on 10/11 in OR, tolerated. Wound vac in place. -management per , plan for possible grafting on Sun -pain control, abx on cefazolin per uncontrolled DM, POA, glc in cmp>400, pt received reduced dose 10unit 10/12, then glc went up to 400s, received 30units lanuts, increased to 35unit 10/14. -glc close to target, will continue 35unit lantus, lispro high -correctional scale, -diabetic diet, a1c9.0 at this time, slightly better. 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 #Hypothyroidism, continue levothyroxine 125mcg PO daily, will check TFTs to ensure euthyroid state #Hypertension, diet controlled #Hyperlipidemia, continue Atorvastatin 10mg PO daily Hospitalist service will continue to follow on daily basis, please feel free to contact if any questions or concerns. VTE Mechanical Devices: Intermittant Pneumatic CD Time spent 35min Sri Reynolds MD Oct 15, 2016 10:42
--- NOTE | 2016-10-15 11:18 | PCM.PNPOD ---
Subjective Date of Service: Oct 15, 2016 Visit Information: Reason for Visit Necrotic Ulcer Right Heel With Type 2 Diabetes And Surgery/Surgery Date DEBRIDMENT OF R HEEL ULCER 10/12/16 Post-Op Day # Date of Admission: Oct 12, 2016 at 09:48 Hospital Day # Subjective: Patient is stating that he is tolerating the postop shoe construct I created for him yesterday with a heel offload. He wants to try it with ambulation. No new events. Objective Vital Sign - Last Date Time Temp Pulse Resp B/P Pulse Ox O2 Delivery O2 Flow Rate FiO2 10/15/16 08:35 Supplement Oxygen 10/15/16 08:04 37.0 64 18 122/70 91 Intake and Output 10/14/16 10/14/16 10/15/16 Cumulative From/Thru 15:00 23:00 07:00 10/09/16 14:53 - 10/15/16 01:27 Intake Total 700 ml Output Total 20 ml Balance 680 ml Intake Oral 550 ml IV Total 150 ml Output Urine Total 0 ml Ultrafiltrate 0 ml Estimated Blood Loss 20 ml # Bowel Movements 1 Result Diagram: 10/15/16 0600 10/15/16 0600 Lab Test 10/12/16 06:11 10/13/16 05:55 10/15/16 06:00 Thyroid Stimulating Hormone (TSH) 20.400uIU/mL (0.450-4.500) Free Thyroxine 1.26ng/dL (0.82-1.77) Hemoglobin A1c 9.0% (4.8-5.6) White Blood Count 9.7th/mm3 (3.8-10.1) Red Blood Count 3.48mil/mm3 (4.40-5.80) Hemoglobin 11.1g/dL (13.8-17.2) Hematocrit 35.2% (41.0-50.0) Mean Corpuscular Volume 101.1fL (81-100) Mean Corpuscular Hemoglobin 31.9pg (27.0-35.0) Mean Corpuscular Hemoglobin Concent 31.5% (32.0-37.0) Red Cell Distribution Width 13.9% (12.3-15.4) Platelet Count 340bil/L (150-400) Neutrophils (%) (Auto) 56.3% (40-74) Lymphocytes (%) (Auto) 25.2% (14-46) Monocytes (%) (Auto) 11.5% (4-12) Eosinophils (%) (Auto) 5.7% (0-5) Basophils (%) (Auto) 0.6% (0-3) Sodium Level 143mEq/L (134-144) Potassium Level 4.5mEq/L (3.5-5.2) Chloride Level 96mEq/L (97-108) Carbon Dioxide Level 31mmol/L (18-29) Blood Urea Nitrogen 32mg/dL (8-27) Creatinine 8.34mg/dL (0.76-1.27) Estimat Glomerular Filtration Rate 7mL/min (>59) Glucose Level 200mg/dL (60-99) Calcium Level 8.6mg/dL (8.5-10.1) Magnesium Level 1.9mg/dL (1.6-2.6) Total Bilirubin 0.2mg/dL (0.0-1.2) Aspartate Amino Transf (AST/SGOT) 14U/L (0-50) Alanine Aminotransferase (ALT/SGPT) 5U/L (0-44) Alkaline Phosphatase 93U/L (25-160) Total Protein 6.6g/dL (6.4-8.4) Albumin 3.0g/dL (3.4-5.0) Exam Lungs: Clear to Auscultation (periods of hypoxia requiring O2 via nasal cannula ), Normal Air Movement Cardiac: Regular Rate/Rhythm Lower Extremities: Right: Edema localized (right foot/ankle) Lower Extremity Pulses: Doppler: Left Dorsalis Pedis Left Posterior Tibal Right Dorsalis Pedis Right Posterior Tibal Postop Sensory Motor: Distal Motor Intact Podiatry WOUND : Incision General Appearence: Wound Vac (in place, 125mmHg continous negative pressure, good seal, no tubing issues, no skin breakdown from tubing), Wound under dressing Surgical Cast or Splint: None Assessment & Plan Problems: (1) Pressure ulcer of right heel, stage 3 Plan: Wound VAC change and wound assessment to be done tomorrow. The patient will be taken back to the operating room on Sunday for skin grafting. TCPO2 study revealed moderate tissue hypoxia in the lower leg, improved with O2 per nasal cannula. It is advisable that the patient be considered for O2 supplementation whenever hypoxia is noted. Status: Acute ICD Code: L89.613 (2) Wound infection Plan: Ancef to continue after dialysis until at least October 25 due to wound colonization and location. Significant hyperglycemia after surgery is improving. I appreciate Dr. Reynolds's assistance in managing his diabetes. Status: Acute ICD Code: T14.8 (3) Hyperkalemia Plan: Inpatient dialysis on regular -SUN-SUN schedule and additional treatments as needed. Dr. Bradshaw's management is greatly appreciated. Patient is expected to return to outpatient dialysis either on Sunday or Sunday this week. Status: Acute ICD Code: E87.5 Celine Carpio DPM Oct 15, 2016 11:18
--- NOTE | 2016-10-15 12:29 | PCM.PNNEPH ---
Subjective Date of Service Oct 15, 2016 Subjective The patient is doing well today and offers no new complaints.He is scheduled for another procedure on Sunday. Exam Vital Signs Vital Sign - Last Date Time Temp Pulse Resp B/P Pulse Ox O2 Delivery O2 Flow Rate FiO2 10/15/16 08:35 Supplement Oxygen 10/15/16 08:04 37.0 64 18 122/70 91 Intake and Output 10/14/16 10/14/16 10/15/16 Cumulative From/Thru 15:00 23:00 07:00 10/09/16 14:53 - 10/15/16 01:27 Intake Total 700 ml Output Total 20 ml Balance 680 ml Intake Oral 550 ml IV Total 150 ml Output Urine Total 0 ml Ultrafiltrate 0 ml Estimated Blood Loss 20 ml # Bowel Movements 1 Exam Lungs are clear to auscultation. Heart is regular and rhythmical with a soft systolic murmur. Abdomen soft without any tenderness or rebound guarding masses or hepatosplenomegaly. Extremities show any evidence of any edema. Lab and Diagnostics Result Diagram: 10/15/16 0600 10/15/16 0600 Plan Impression Impression #1 end-stage renal disease dialysis dependent number to diabetic nephropathy with peripheral vascular disease and right foot heel ulcer Recommendations #1 we will schedule his dialysis on Sunday around the planned surgical procedure. Parag Bradshaw DO Oct 15, 2016 12:29
[2016-10-15 12:38] VITALS: BP 132/73; PULSE 76; RESP 18; O2SAT 92
[2016-10-15 16:45] VITALS: BP 146/76; PULSE 72; RESP 18; O2SAT 94
[2016-10-15 20:12] VITALS: BP 134/78; PULSE 76; RESP 18; O2SAT 93
[2016-10-16 04:11] VITALS: BP 119/56; PULSE 73; RESP 16; O2SAT 96
[2016-10-16 08:16] VITALS: BP 129/84; PULSE 72; RESP 19; O2SAT 94
[2016-10-16] MEDS: Insulin GLARgine 100 Unit/mL Syringe SUBQ SCH (08:29)
[2016-10-16] MEDS: Insulin LISPRO 300 Unit/3 mL Inj SUBQ SCH ×4 (08:30→22:00)
--- NOTE | 2016-10-16 09:00 | NUR ---
Dialysis Report given to outpatient dialysis after breakfast. Patient transported via hospital bed. UJ=972/84. Blood vsgqfmf=862. Sliding scale insulin given prior to transfer.
[2016-10-16 09:02] VITALS: BP 119/67; PULSE 77
--- NOTE | 2016-10-16 09:24 | PCM.PNMED ---
Subjective Date of Service Oct 16, 2016 Subjective pt denied any complaints glc 160s this AM, no hypoglycemic event Exam Vital Signs Vital Sign - Last Date Time Temp Pulse Resp B/P Pulse Ox O2 Delivery O2 Flow Rate FiO2 10/16/16 08:16 37.1 72 19 129/84 94 Room Air Intake and Output 10/15/16 10/15/16 10/16/16 Cumulative From/Thru 15:00 23:00 07:00 10/09/16 14:53 - 10/16/16 06:10 Intake Total 236 ml 200 ml 1136 ml Output Total 0 ml 1 ml 0 ml 21 ml Balance 0 ml 235 ml 200 ml 1115 ml Intake Oral 236 ml 200 ml 986 ml IV Total 150 ml Output Urine Total 1 ml 0 ml 1 ml Ultrafiltrate 0 ml Estimated Blood Loss 0 ml 20 ml # Bowel Movements 1 0 2 Exam NAD, comfortablely laying down on bed, RRR nl s1 s2 no mrg CTAB no w,c S,ND,NT,BS+ Rt heel, sterilely dressed, on boots IVs and Medications Medications Reviewed: Medications were reviewed in detail Lab and Diagnostics Result Diagram: 10/15/16 0600 10/16/16 0530 Assessment & Plan acute, active, Rt heel necrotic ulcer, POA, pt underwent I&D by on 10/11 in OR, tolerated. Wound vac in place. -management per , plan for possible grafting tomorrow -pain control, abx on cefazolin per uncontrolled DM, POA, glc in cmp>400, pt received reduced dose 10unit 10/12, then glc went up to 400s, received 30units lanuts, increased to 35unit 10/14. -glc in target, continue 35unit lantus, lispro high -correctional scale, -diabetic diet, a1c9.0 at this time, slightly better. 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 #Hypothyroidism, continue levothyroxine 125mcg PO daily, will check TFTs to ensure euthyroid state #Hypertension, diet controlled #Hyperlipidemia, continue Atorvastatin 10mg PO daily Hospitalist service will continue to follow on daily basis, please feel free to contact if any questions or concerns. VTE Mechanical Devices: Intermittant Pneumatic CD Time spent 35min Sri Reynolds MD Oct 16, 2016 09:24
--- NOTE | 2016-10-16 11:50 | NUR ---
NUTRITION ASSESSMENT: ASSESS: 65YO M admit with Stage III PU on R heel s/p I&D. PMHX: ESRD on dialysis, DM Type I, HTN,PVD DIET: Diabetic. PO 100% LABS: No Chem labs MEDS: Reviewed GI: 1 BM 10/15 WEIGHT: 83.9kg BMI: 25.1; admit wt: 83.9kg EST.NEEDS: DIALYSIS/STAGE III PU (35-20kcal/kg;1.5-2.0g/kg pro) Kcal: 4870-6753 Pro: 130-170g NUTRITION DIAGNOSIS: (1) Increased protein/energy needs related to increased demand for nutrients as evidenced by ESRD on dialysis, Stage II Pressure Ulcer on R Heel. INTERVENTION: (1) Fawad supplement added BID to promote adequate kcal/protein intake for wound healing. MONITOR/EVALUATE: PO intake, lab values, wound. F/U per moderate risk.
[2016-10-16] MEDS: CeFAZolin Inj 2 GM in IV Premix 1 EACH IV SCH (12:55)
--- NOTE | 2016-10-16 13:03 | NUR ---
Dialysis note 4 Hr rxd tx. Completed 3 Hr 35 min. Net UF 2600 Right tunneled cath QB 400 until the last 30 min of tx. Off 25 min early r/t high venous pressures. Clotting noted in venous chamber Dressg changed CHG, chloroprep Pt stable throughout tx, at bedside Cefazolin, 2 Gm given post tx through dialysis cath. Report given to primary RN, Keshav Pt returned to floor stable Please see DTR for complete record of VS
--- NOTE | 2016-10-16 13:31 | PCM.PNNEPH ---
Subjective Date of Service Oct 16, 2016 Subjective Patient is seen during hemodialysis. He reports no pain at the moment. His blood pressure is stable. Exam Vital Signs Vital Sign - Last Date Time Temp Pulse Resp B/P Pulse Ox O2 Delivery O2 Flow Rate FiO2 10/16/16 09:02 77 10/16/16 08:16 37.1 19 129/84 94 Room Air Intake and Output 10/15/16 10/15/16 10/16/16 Cumulative From/Thru 15:00 23:00 07:00 10/09/16 14:53 - 10/16/16 06:10 Intake Total 236 ml 200 ml 1136 ml Output Total 0 ml 1 ml 0 ml 21 ml Balance 0 ml 235 ml 200 ml 1115 ml Intake Oral 236 ml 200 ml 986 ml IV Total 150 ml Output Urine Total 1 ml 0 ml 1 ml Ultrafiltrate 0 ml Estimated Blood Loss 0 ml 20 ml # Bowel Movements 1 0 2 Exam GENERAL: The patient in no apparent distress, and alert and oriented x3. HEENT: Head is normocephalic and atraumatic. Extraocular muscles are intact. Pupils are equal, round, and reactive to light and accommodation. NECK: Supple, no elevation of JVD, No carotid bruits. No lymphadenopathy or thyromegaly. LUNGS: Clear to auscultation, equal breath sounds bilaterally, no wheezing, no rhonchi no rales. HEART: Normal S1/S2, Regular rate and rhythm, soft systolic murmurs, rubs or gallops. 2+ pules throughout. ABDOMEN: Soft, nontender, and nondistended. Positive bowel sounds. No hepatosplenomegaly was noted. EXTREMITIES: Without any cyanosis, clubbing, rash, lesions or edema. SKIN: Dressing on right foot with boots. Lab and Diagnostics Result Diagram: 10/15/16 0600 10/16/16 0530 Plan Impression 1. End-stage renal disease on hemodialysis every Sunday was in Sunday 4 hr, 2K, 35HCO3, DFR 600, BFR 400, UF 3L. Revaclear, AVF. 2. Chronic diabetic foot ulcers status post I and D with wound VAC in place 3. Type II diabetes with diabetic nephropathy 4. Hypertension with renal manifestation. 5. Hyperlipidemia 6. Hypothyroidism 7. Renal osteodystrophy Plan: Given hypocalcemia, I will hold Sensipar. Check PTH and phosphorus level. Patient will receive Dialysis on Sunday. We will monitor along with the team. Indira Alcala MD Oct 16, 2016 13:31
--- NOTE | 2016-10-16 14:00 | NUR ---
BACK FROM DIALYSIS Recieved report from Dina in Dialysis. Patient transferred via hospital bed and re-oriented to room and call light. BG 218, BP 101/64. HR 65. Denies pain/nausea/SOB. Refused to work with physical therapy. Wound vac on right heel clean and intact.
--- NOTE | 2016-10-16 14:24 | NUR ---
FISH CUTTER witnessed [facility]'s signature AZUCENA PradoSW
--- NOTE | 2016-10-16 14:27 | NUR ---
Social work note - Initial assessment Edvin Fischer is a 65 yr old admitted for necrotic ulcer of his foot. EMR reviewed: Pt has [employer] [facility] medicare. His PCP is Dr Person. No DPOA - UTILITY INSPECTOR provided paperwork and education - Family demonstrated teach back. No LTC or VA benefits. Readmit score is 2. See attached CM initial assessment. UTILITY INSPECTOR met with pt - introduced D/C planning and explained SW role. Pt lives at home with his . He does not drive, is legally blind. Uses a 4WW at home. He goes to dialysis [facility]. Pt is open with [facility] for RN PT. He states that he would like them to continue. He plans to d/c home - Pt to go to OR tomorrow to have skin graft. His will drive him home. Pt denies any other needs. Plan: Home with in POV - Outpt dialysis established. Resume [facility] for RN PT. MILLIE Prado Addendum: 10/16/16 at 1431 by JADA WALTERS SS Amended: Links added.
[2016-10-16 17:21] VITALS: BP 120/77; PULSE 77; RESP 20; O2SAT 95
[2016-10-16 19:50] VITALS: BP 128/73; PULSE 85; RESP 18; O2SAT 96
--- NOTE | 2016-10-16 21:47 | PCM.PNPOD ---
Subjective Date of Service: Oct 16, 2016 Visit Information: Reason for Visit Necrotic Ulcer Right Heel With Type 2 Diabetes And Surgery/Surgery Date DEBRIDMENT R HEEL 10/12, SKIN GRAFT R HEEL 10/17 Post-Op Day # 4 Date of Admission: Oct 12, 2016 at 09:48 Hospital Day #4 Gastrointestinal: Good Appetite Pain Management: PO Neurological: Numbness (peripheral neuropathy) Objective Vital Sign - Last Date Time Temp Pulse Resp B/P Pulse Ox O2 Delivery O2 Flow Rate FiO2 10/16/16 19:50 36.8 85 18 128/73 96 Room Air Intake and Output 10/15/16 10/15/16 10/16/16 Cumulative From/Thru 15:00 23:00 07:00 10/09/16 14:53 - 10/16/16 06:10 Intake Total 236 ml 200 ml 1136 ml Output Total 0 ml 1 ml 0 ml 21 ml Balance 0 ml 235 ml 200 ml 1115 ml Intake Oral 236 ml 200 ml 986 ml IV Total 150 ml Output Urine Total 1 ml 0 ml 1 ml Ultrafiltrate 0 ml Estimated Blood Loss 0 ml 20 ml # Bowel Movements 1 0 2 Result Diagram: 10/15/16 0600 10/16/16 0530 Lab Test 10/12/16 06:11 10/13/16 05:55 10/15/16 06:00 10/16/16 05:30 Thyroid Stimulating Hormone (TSH) 20.400uIU/mL (0.450-4.500) Free Thyroxine 1.26ng/dL (0.82-1.77) Hemoglobin A1c 9.0% (4.8-5.6) White Blood Count 9.7th/mm3 (3.8-10.1) Red Blood Count 3.48mil/mm3 (4.40-5.80) Hemoglobin 11.1g/dL (13.8-17.2) Hematocrit 35.2% (41.0-50.0) Mean Corpuscular Volume 101.1fL (81-100) Mean Corpuscular Hemoglobin 31.9pg (27.0-35.0) Mean Corpuscular Hemoglobin Concent 31.5% (32.0-37.0) Red Cell Distribution Width 13.9% (12.3-15.4) Platelet Count 340bil/L (150-400) Neutrophils (%) (Auto) 56.3% (40-74) Lymphocytes (%) (Auto) 25.2% (14-46) Monocytes (%) (Auto) 11.5% (4-12) Eosinophils (%) (Auto) 5.7% (0-5) Basophils (%) (Auto) 0.6% (0-3) Magnesium Level 1.9mg/dL (1.6-2.6) Total Bilirubin 0.2mg/dL (0.0-1.2) Aspartate Amino Transf (AST/SGOT) 14U/L (0-50) Alanine Aminotransferase (ALT/SGPT) 5U/L (0-44) Alkaline Phosphatase 93U/L (25-160) Total Protein 6.6g/dL (6.4-8.4) Albumin 3.0g/dL (3.4-5.0) Sodium Level 146mEq/L (134-144) Potassium Level 4.4mEq/L (3.5-5.2) Chloride Level 99mEq/L (97-108) Carbon Dioxide Level 30mmol/L (18-29) Blood Urea Nitrogen 43mg/dL (8-27) Creatinine 9.97mg/dL (0.76-1.27) Estimat Glomerular Filtration Rate 6mL/min (>59) Glucose Level 167mg/dL (60-99) Calcium Level 8.4mg/dL (8.5-10.1) Test 10/16/16 13:50 Phosphorus Level 3.1mg/dL (2.5-4.9) Parathyroid Hormone (Intact) 172pg/mL (15-65) Exam General: Alert, Oriented X3, Cooperative Lungs: Clear to Auscultation (periods of hypoxia requiring O2 via nasal cannula ), Normal Air Movement Cardiac: Regular Rate/Rhythm Lower Extremities: Right: Edema localized (resolved) Lower Extremity Pulses: Doppler: Left Dorsalis Pedis Left Posterior Tibal Right Dorsalis Pedis Right Posterior Tibal Postop Sensory Motor: Distal Motor Intact Podiatry WOUND : Wound Location/Description Wound VAC disconnected. Wound on right heel is now 90% granular with exception of medial abscess egress area. Full fibrous plug medially. Overall size 11cm x 3.5cm, 0.6cm deep. Surgical Cast or Splint: None Assessment & Plan Problems: (1) Pressure ulcer of right heel, stage 3 Plan: Wound VAC removed, wound cleansed and dressed with wound gel, gauze, and Kerlix, overwrapped with a new Josiah wrap 6". The patient will be taken back to the operating room tomorrow for skin grafting. TCPO2 study revealed moderate tissue hypoxia in the lower leg, improved with O2 per nasal cannula. It is advisable that the patient be considered for O2 supplementation whenever hypoxia is noted. Status: Acute ICD Code: L89.613 (2) Wound infection Plan: Ancef to continue after dialysis until at least October 25 due to wound colonization and location. Significant hyperglycemia after surgery is improving. I appreciate Dr. Reynolds's assistance in managing his diabetes. Status: Acute ICD Code: T14.8 (3) Hyperkalemia Plan: Inpatient dialysis on regular -SUN-SUN schedule and additional treatments as needed. Dr. Bradshaw's management is greatly appreciated. Patient is expected to return to outpatient dialysis either on Sunday or Sunday this week. Status: Acute ICD Code: E87.5 Celine Carpio DPM Oct 16, 2016 21:47
[2016-10-17] VITALS (13 sets, daily range): BP systolic 86–123; BP diastolic 46–75; PULSE 73–97; RESP 16–21; O2SAT 92–97
[2016-10-17] MEDS ORDERED: Lactated Ringer's 1,000 ML IV SCH (05:00)
--- NOTE | 2016-10-17 06:46 | PCM.HPANE ---
Patient Data Surgeon Admitting Provider:Celine Carpio DPM Attending Provider:Celine Carpio DPM Primary Care Physician:Olu Person MD Other Provider:Burak Curtis Anesthesia Reason for Visit Necrotic Ulcer Right Heel With Type 2 Diabetes And NECROTIC ULCER RIGHT HEEL WITH TYPE 2 DIABETES AND Ht/WT & BMI Height (Feet): 6 Height (Inches): 0.00 Weight (Kilograms): 85.900 Body Mass Index 25.00 Allergies Coded Allergies: barium sulfate (Verified Allergy, Severe, severe swelling, 10/10/16) Uncoded Allergies: KAEXYLATE (Allergy, Mild, Hives, 07/03/16) Past Anesthesia History Anesthesia History: Denies:: Abnormal Airway, Anesthesia Reactions, Difficult Intubation, Fam Anesthesia Reaction, Fam Malignant Hypertherm, Malignant Hyperthermia Diabetes History Hx Diabetes?: Yes Type of Diabetes: Type I Glycemic Control: Insulin Dependent Current Bedside Blood Glucose: 202 MRSA MRSA: No Medications Blood Thinner: Plavix Hypertension Medication: Yes (Midodrine) Home Meds Incl Beta Heide: No Reported Medications Clopidogrel Bisulfate (Plavix)75 Mg [id number] Mg PO DAILY 30 Days Ref 0 10/10/16 Levothyroxine 125 Mcg [id number] Mcg PO DAILY For Thyroid Replacement Ref 0 06/19/16 Insulin Glargine (Lantus U100 Insulin Vial)100 Unit/Ml Vial25 Unit SUBQ HS #1 VIAL Ref 0 04/26/16 Midodrine 10 Mg Kbnjxs15 Mg PO BID 11/18/15 Cinacalcet (Sensipar)30 Mg Itmwmk71 Mg PO HS Ref 0 11/17/15 Insulin Regular, Human (Novolin-R U100 Insulin Vial)100 Unit/1 Ml Vial5-10 SQ tid sliding scale #1 VIAL Ref 0 10/13/14 Atorvastatin Calcium 10 Mg Jorejl02 Mg PO DAILY 30 Days Ref 0 01/22/14 Discontinued Reported Medications Sevelamer Carbonate (Renvela)800 Mg Byuvmb936 Mg PO TID 90 Days 11/17/15 Aspirin 81 Mg Huwzru78 Mg PO DAILY Ref 0 10/13/14 History History of ENT Problems?: Yes HEENT History: Positive for:: Cataracts (left eye) Denies:: Abnormal Airway Difficult Intubation Dysphagia Glaucoma (Considered legally blind) Hearing Problem Sinus Problem TMJ Denture Type: Partial- Upper Teeth Condition: No Teeth Hx of Heart Problems?: Yes Cardiovascular History: Positive for:: Heart Murmur Hypertension Irregular Heartbeat (regularly irregular.) Peripheral Vascular (secondary to Diabetes) Denies:: AICD Abdominal Aortic Aneurism Atrial Fibrillation Cardiac Surgery Chest Pain Congestive Heart Failure Coronary Artery Disease Edema (Chronic kidney disease ) Pacemaker Rheumatic Fever Thrombophlebitis Valvular Heart Disease Hx of Respiratory Problem?: Yes Respiratory History: Positive for:: Pneumonia (2016) Denies:: Asthma COPD Chest Surgery Cough Dyspnea Emphysema Hemoptysis Pulmonary Embolism Tuberculosis Use of C-PAP Machine Use of Inhalers / NEBS Hx Neurologic Problems?: No Neurological History: Positive for:: Peripheral Neuropathy Denies:: Alzheimer's Disease CVA Dementia Dizziness Headaches Multiple Sclerosis Parkinson's Disease Seizures TIA Hx of GI Problems?: No Hx of Problems?: Yes Genitourinary History: Positive for:: HX of Hemodialysis (M/W/F dialysis last done 10/11/16) Kidney Stones Denies:: Urinary Tract Infection HX of Peritoneal Dialysis: No Male Hx: Denies:: Prostate Problems Scrotal Mass Testicular Surgery Skin History: Denies:: History Skin Disorders? Pressure Ulcers Hx Musculoskeletal Problems?: No Musculoskeletal History: Denies:: Back Injury Degenerative Joint Fibromyalgia Joint Replacement Musculoskeletal Trauma Myasthenia Gravis Osteoarthritis Rheumatoid Arthritis Systemic Lupus Hx of Psycho/Social Problems?: No Psycho Social History: Denies:: Anxiety Bipolar Disorder Hx Depression Suicide Attempt Hx Surgeries?: Yes (fistula, Port a cath) Hx Any Other Health Problems?: Yes Other History: Positive for:: Hospitalization (Pneumonia 2016) Thyroid Disease Denies:: Cancer Endocrine Disease History Blood Transfusions: Positive for:: Accept Blood Products? Denies:: Blood Transfuse Reaction Blood Transfusions Hx Diabetes: YesBedside Blood Glucose: 202 Hx Alcohol Use: NoHx Substance Use: No Smoking Status: Former Smoker Have You Smoked inLast 12 mo: No Stop/Bang S-Snoring: Do You Snore Loudly: No T-Tired: feel tired, fatigued: No O-Obsered: Observed not breath: No P-Blood Pressure: treated: Yes B- Body Mass Index > 35 kg/m2: No A- Age over 50: Yes N- Neck Large Circumference: No G- Gender Male: Yes ALMAZ Total Score: 3 ALMAZ Risk Assessment: High Risk, =/>3 Yes ALMAZ Category 2: Yes Risk Assessment Category Category 1A: Patient has history of documented sleep apnea, and HAS NOT received any narcotic, sedative or anesthesia administration during this stay. Category 1B: Patient has history of documented sleep apnea, and HAS received any narcotic , sedative or anesthesia administration during this stay Category 2: Patient has SUSPECTED Obstructive Sleep Apnea, and HAS received any narcotic , sedative or anesthesia administration during this stay. Category 3: Patient has SUSPECTED Obstructive Sleep Apnea and HAS NOT received narcotic, sedative or anesthesia administration during this stay. Category 4: Outpatient in Procedural Areas with known sleep apnea or who screen positive for High Risk via the STOP/BANG questionnaire. High Risk, =/>3 Yes Exam Exam Vital Signs Vital Signs Date Time Temp Pulse Resp B/P Pulse Ox O2 Delivery O2 Flow Rate FiO2 10/17/16 05:37 36.7 89 16 117/68 94 Room Air 10/17/16 00:53 Supplement Oxygen General Appearance: Alert, Oriented X3, Cooperative, No Acute Distress HEENT/AIRWAY: MP 1, Neck Movement (limited extension, tmd 3 fb) Lungs: Clear to Auscultation (periods of hypoxia requiring O2 via nasal cannula ), Normal Air Movement Heart: Exam Unremarkable, Regular Rate/Rhythm, No Murmurs/Rubs/Gallops Meds/Labs/Diagnostics Admission Meds Current Medications Lactated Ringer's (Lr) 1,000 ml @ 120 mls/hr Q8H20M IV Last administered on t 05:08; Start 10/17/16 at 05:00; Stop 10/17/16 at 13:19 Bedside Blood Glucose: 202 Labs Test 10/12/16 06:11 10/13/16 05:55 10/15/16 06:00 10/16/16 05:30 Thyroid Stimulating Hormone (TSH) 20.400uIU/mL (0.450-4.500) Free Thyroxine 1.26ng/dL (0.82-1.77) Hemoglobin A1c 9.0% (4.8-5.6) White Blood Count 9.7th/mm3 (3.8-10.1) Red Blood Count 3.48mil/mm3 (4.40-5.80) Hemoglobin 11.1g/dL (13.8-17.2) Hematocrit 35.2% (41.0-50.0) Mean Corpuscular Volume 101.1fL (81-100) Mean Corpuscular Hemoglobin 31.9pg (27.0-35.0) Mean Corpuscular Hemoglobin Concent 31.5% (32.0-37.0) Red Cell Distribution Width 13.9% (12.3-15.4) Platelet Count 340bil/L (150-400) Neutrophils (%) (Auto) 56.3% (40-74) Lymphocytes (%) (Auto) 25.2% (14-46) Monocytes (%) (Auto) 11.5% (4-12) Eosinophils (%) (Auto) 5.7% (0-5) Basophils (%) (Auto) 0.6% (0-3) Magnesium Level 1.9mg/dL (1.6-2.6) Total Bilirubin 0.2mg/dL (0.0-1.2) Aspartate Amino Transf (AST/SGOT) 14U/L (0-50) Alanine Aminotransferase (ALT/SGPT) 5U/L (0-44) Alkaline Phosphatase 93U/L (25-160) Total Protein 6.6g/dL (6.4-8.4) Albumin 3.0g/dL (3.4-5.0) Sodium Level 146mEq/L (134-144) Potassium Level 4.4mEq/L (3.5-5.2) Chloride Level 99mEq/L (97-108) Carbon Dioxide Level 30mmol/L (18-29) Blood Urea Nitrogen 43mg/dL (8-27) Creatinine 9.97mg/dL (0.76-1.27) Estimat Glomerular Filtration Rate 6mL/min (>59) Glucose Level 167mg/dL (60-99) Calcium Level 8.4mg/dL (8.5-10.1) Test 10/16/16 13:50 Phosphorus Level 3.1mg/dL (2.5-4.9) Parathyroid Hormone (Intact) 172pg/mL (15-65) Plan Impression Patient chart reviewed, patient interviewed and anesthestic plan with risks, benefits, and alternatives discussed, and informed consent obtained. NPO per Anesth. Guidelines: Yes Rodney Mazariegos MD Oct 17, 2016 06:46
--- NOTE | 2016-10-17 07:22 | NUR ---
GI Placed NPO at midnight for surgery today. IV LR @ 120hr started. No c/o pain overnight. Resting quietly.
[2016-10-17] MEDS: Insulin LISPRO 300 Unit/3 mL Inj SUBQ SCH ×5 (08:00→21:25)
[2016-10-17] MEDS ORDERED: Phenylephrine/NS 100 mCg/mL 10 mL Syringe IVPUSH ONE (08:16)
[2016-10-17] MEDS ORDERED: Propofol 10,000 mCg/mL 20 mL Inj ONE (08:16)
[2016-10-17] MEDS ORDERED: Mineral Oil-Light (Sterile) 25 mL TOPICAL ONE (08:37)
[2016-10-17] MEDS ORDERED: 0.9% Sodium Chloride 500 ML IV ONE (09:05)
[2016-10-17] MEDS ORDERED: Lidocaine 1%-Epi 1:100,000 20 mL Inj INFILTRATE ONE (09:30)
[2016-10-17] MEDS ORDERED: 0.9% Sodium Chloride 500 ML IV SCH (09:36)
[2016-10-17] MEDS ORDERED: Ondansetron 2 mg/mL 2 mL Inj IVPUSH PRN (09:40)
[2016-10-17] MEDS ORDERED: Labetalol 5 mg/mL 20 mL Inj IV PRN (09:40)
[2016-10-17] MEDS ORDERED: Phenylephrine 10,000 mCg/mL Inj IVPUSH PRN (09:40)
[2016-10-17] MEDS ORDERED: EPHEDrine Sulfate 50 mg/mL Inj IVPUSH PRN (09:40)
[2016-10-17] MEDS ORDERED: fentaNYL-PF 50 mCg/mL 2 mL Inj IVPUSH PRN (09:40)
[2016-10-17] MEDS ORDERED: Atropine 0.4 mg/mL Inj IVPUSH PRN (09:40)
[2016-10-17] MEDS ORDERED: HYDROmorphone 1 mg/mL Inj IVPUSH PRN (09:40)
[2016-10-17] MEDS ORDERED: hydrALAZINE 20 mg/mL Inj IVPUSH PRN (09:40)
--- NOTE | 2016-10-17 10:27 | PCM.PNMED ---
Subjective Date of Service Oct 17, 2016 Subjective pt was tentatively scheduled for surgery fsg 114 this AM denied any complaints recommended SNF per PT Exam Vital Signs Vital Sign - Last Date Time Temp Pulse Resp B/P Pulse Ox O2 Delivery O2 Flow Rate FiO2 10/17/16 05:37 36.7 89 16 117/68 94 Room Air Intake and Output 10/16/16 10/16/16 10/17/16 Cumulative From/Thru 15:00 23:00 07:00 10/09/16 14:53 - 10/17/16 06:02 Intake Total 720 ml 665 ml 2521 ml Output Total 2600 ml 100 ml 0 ml 2721 ml Balance -2600 ml 620 ml 665 ml -200 ml Intake Oral 720 ml 600 ml 2306 ml IV Total 65 ml 215 ml Output Urine Total 100 ml 0 ml 101 ml Ultrafiltrate 2600 ml 2600 ml Estimated Blood Loss 20 ml # Bowel Movements 0 2 Exam NAD, comfortablely laying down on bed, RRR nl s1 s2 no mrg CTAB no w,c S,ND,NT,BS+ Rt heel, sterilely dressed, on boots IVs and Medications Medications Reviewed: Medications were reviewed in detail Lab and Diagnostics Result Diagram: 10/15/16 0600 10/16/16 0530 Assessment & Plan acute, active, Rt heel necrotic ulcer, POA, pt underwent I&D by on 10/11 in OR, tolerated. Wound vac in place. -management per , plan for possible grafting today -pain control, abx on cefazolin per uncontrolled DM, POA, glc in cmp>400, pt received reduced dose 10unit 10/12, then glc went up to 400s, received 30units lanuts, increased to 35unit 10/14. -glc in target, continue 35unit lantus, lispro high -correctional scale, -diabetic diet, a1c9.0 at this time, slightly better. 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 #Hypothyroidism, continue levothyroxine 125mcg PO daily, will check TFTs to ensure euthyroid state #Hypertension, diet controlled #Hyperlipidemia, continue Atorvastatin 10mg PO daily Hospitalist service will continue to follow on daily basis, please feel free to contact if any questions or concerns. VTE Mechanical Devices: Intermittant Pneumatic CD Time spent 35min Sri Reynolds MD Oct 17, 2016 10:27
--- NOTE | 2016-10-17 10:50 | PCM.PODPO ---
Podiatry Operative Report Date of Service: Oct 17, 2016 Date of Service Oct 17, 2016 Pre Operative Diagnosis Chronic pressure ulcer, right heel, stage 3 Post Operative Diagnosis Chronic pressure ulcer, Stage 3, right heel Procedure Debridement of ulceration, right heel and split thickness skin graft from right calf to right heel. Surgeon Surgeon: Celine Carpio DPM Assistants: Patty Parrish, CHASITY Indication for Procedure Open wound s/p excision of Stage 3 pressure ulcer, right heel. Findings Medial tunnel needed to be excised fully and added into grafting. Details of Procedure The patient was identified in the preoperative holding area and brought back to the operating room. He was placed on the operating table in supine position, with the right leg elevated and externally rotated. General anesthesia was initiated. The timeout protocol was completed in the patient's name and site of surgery confirmed. The right heel was anesthetized with 1% lidocaine plain and prepped and the leg draped in usual aseptic manner. A #10 scalpel was used to excise the margins of the existing pressure ulceration, 12 x 3 cm in size and 0.7 cm deep. After debridement and excision of all nonviable appearing tissue, the final debridement measurements were 12 cm x 3.2 cm in size and 1 cm deep,including the medial tunnel. There was minimal medial purulence, no odor. No necrosis. All margins bled adequately. Cautery was used to stop the bleeding where necessary. The wound was irrigated with normal saline with gentamicin, with pulse lavage, reduced pressure setting. An 8cm x 5cm graft site at the proximal medial heel was harvested, 0.016mm deep and meshed 1.5 to 1, then applied to the heel wound in two segments, sutured down with 4-0 Monocryl. The patient's wound was then dressed with Adaptic, a black granular foam, and connected to the wound VAC at 125 mmHg continuous negative pressure. The wound VAC dressing was attached and overwrapped with Coban. A troughed portion of foam was placed over the bony prominence to allow for tubing to be kept away from the skin. The donor site was dressed with Xeroform, gauze, VAC drape open distally, and ABD pad and Coban for drainage distally. The patient was weaned off of sedation and taken to the PACU with vital signs stable and the vascular status to the right foot appearing intact for wound healing. Grafts, Implants: None Complications There were no periprocedural complications identified. Condition Stable Anesthetic Administered: GA Drains: Wound Vac Catheters: None Output, Estimated Blood Loss: 10 (ml) Blood Admin during surgery: No Surgical Cast or Splint: None Surgical Specimen Removed: No Specimen sent to Pathology: No Post Operative Plan Nonweightbearing on the right heel, inpatient stay for an additional 48 hours to ensure graft stays under VAC dressing and minimal chance of WB with supervision. IV and by mouth pain medication has been ordered. Wound VAC therapy at 125 mmHg , to be changed in 5 days. IV antibiotics, Ancef, as previously ordered by nephrology, after each dialysis treatment, dosing to be determined by nephrology. The patient will require dialysis tomorrow. Celine Carpio DPM Oct 17, 2016 10:50
--- NOTE | 2016-10-17 11:08 | PCM.ANEP1 ---
Post Anesthesia PACU Phase 1 Assessment Vital Signs Vital Signs Date Time Temp Pulse Resp B/P Pulse Ox O2 Delivery O2 Flow Rate FiO2 10/17/16 11:00 80 21 96/68 95 Room Air 10/17/16 10:55 77 20 103/53 95 Room Air 10/17/16 10:50 75 21 105/57 97 Room Air 10/17/16 10:45 73 19 116/60 95 Room Air 10/17/16 10:40 36.3 83 21 86/49 95 Room Air 10/17/16 10:37 82 17 86/46 95 Room Air 10/17/16 08:02 Supplement Oxygen 10/17/16 05:37 36.7 89 16 117/68 94 Room Air Anesthetic Administered: GA Level of Alertness: Awake, talking GUERRA's with Equal Strength: Yes Pain: No Nausea or Vomiting: No CV Function & Hydration Stable: Yes Airway Device: none Oxygen Delivery: Room Air Lungs: Normal Air Movement Dermatome Level: Full Sensation (baseline) PACU Phase 2 Assessment Complications: No Follow up Care: No Patient Instructions Provided: N/A Rodney Mazariegos MD Oct 17, 2016 11:08
[2016-10-17] MEDS: Insulin GLARgine 100 Unit/mL Syringe SUBQ SCH (14:07)
--- NOTE | 2016-10-17 18:16 | NUR ---
Post op note- Patient returned to room from PACU at 1130. Alert and awake. Denies pain. Right lower extremity with Coban dressing and wound vac to suction. Dressing dry and intact. Extremity elevated on pillow. PT to see patient tomorrow for activity, otherwise patient dangled legs over side of bed tonight to eat dinner. Tolerated well.
--- NOTE | 2016-10-18 05:46 | NUR ---
Nurse Note NOC shift Pt is alert and oriented x3, denies pain, or SOB. remained on RA all night with SPO2 >95%. Right leg/foot covered with dressing, wound vac in place. No drainage suctioned in woundvac and no drainage on dressing. capillary refill on right toes positive. Pt reports that at baseline he has no sensation on his extremities. He denied pain on the leg all night. Pt slept well though the night.
[2016-10-18 06:26] VITALS: BP 126/69; PULSE 79; RESP 16; O2SAT 98
[2016-10-18] MEDS: Insulin GLARgine 100 Unit/mL Syringe SUBQ SCH (07:51)
[2016-10-18] MEDS: Insulin LISPRO 300 Unit/3 mL Inj SUBQ SCH ×4 (07:52→22:51)
--- NOTE | 2016-10-18 08:15 | NUR ---
Transfer to Dialysis Patient is alert and oriented. QI=799, sliding scale insulin and lantis given. ZY=775/76. Transported via hospital bed.
--- NOTE | 2016-10-18 08:21 | NUR ---
Transfer for dialysis. Patient transferred into to room 243-1. Report received from Keshav Lopez. Kiel mccormick. water softener installer at bedside. Addendum: 10/18/16 at 1355 by ENOCH GIRALDO RN Dialysis complete. Transported back to room 1019. Report given to Tiffanie Lopez.
[2016-10-18 09:03] VITALS: BP 145/81; PULSE 72
--- NOTE | 2016-10-18 13:58 | NUR ---
Dialysis note: 4 hr tx Net UF 1600 Right Cath A-A, V-V and then A-V, V-A Heparin on hold, NS infusion at 150 mL/hr System clotted and changed, NS infusion increased to 200 mL/hr Dwelled with Heparin 1000 and secured with caps Report given to primary RN, Keshav Pt returned to floor stable Please see DTR for complete record of VS
--- NOTE | 2016-10-18 14:15 | NUR ---
Social Work- Readiness for D/C Data: EMR Reviewed. Pt is on day 6 of hospitalization for necrotic ulcer of the right heel with type II diabetes. Pt discussed in multidisciplinary rounds. Pt will require SNF at d/c, SNF order received. SW met with pt and at bedside regarding d/c plan. SNF recommendation explained. Pt is agreeable to SNF recommendation. SNF CHOICE LIST PROVIDED. Pt and chose [facility] as first and only choice. [employer] requested to make referral to [facility]. Pt and updated and agreeable to plan. Paperwork in chart, PASRR to be completed. SW will continue to follow. Assessment: Pt for whom SNF is medically indicated for wound care and PT. Plan: Referral made to [facility]. [place] authorization will be required prior to d/c. Pt and updated and agreeable to plan. Paperwork in chart, PASRR to be completed. SW will continue to follow. SINDHU Wilson
[2016-10-18 14:22] VITALS: BP 118/71; PULSE 81; RESP 18; O2SAT 92
--- NOTE | 2016-10-18 14:49 | PCM.PNNEPH ---
Subjective Date of Service Oct 18, 2016 Subjective Seen during HD, pain controlled. Underwent skin graft yesterday. No acute event. Exam Vital Signs Vital Sign - Last Date Time Temp Pulse Resp B/P Pulse Ox O2 Delivery O2 Flow Rate FiO2 10/18/16 14:22 36.7 81 18 118/71 92 Room Air Intake and Output 10/17/16 10/17/16 10/18/16 Cumulative From/Thru 15:00 23:00 07:00 10/09/16 14:53 - 10/17/16 21:00 Intake Total 500 ml 3021 ml Output Total 10 ml 2731 ml Balance 490 ml 290 ml Intake Oral 2306 ml IV Total 500 ml 715 ml Output Urine Total 101 ml Ultrafiltrate 2600 ml Estimated Blood Loss 10 ml 30 ml # Bowel Movements 2 Exam GENERAL: The patient in no apparent distress, and alert and oriented x3. HEENT: Head is normocephalic and atraumatic. Extraocular muscles are intact. Pupils are equal, round, and reactive to light and accommodation. NECK: Supple, no elevation of JVD, No carotid bruits. No lymphadenopathy or thyromegaly. LUNGS: Clear to auscultation, equal breath sounds bilaterally, no wheezing, no rhonchi no rales. HEART: Normal S1/S2, Regular rate and rhythm, soft systolic murmurs, rubs or gallops. 2+ pules throughout. ABDOMEN: Soft, nontender, and nondistended. Positive bowel sounds. No hepatosplenomegaly was noted. EXTREMITIES: Without any cyanosis, clubbing, rash, lesions or edema. SKIN: Dressing on right foot, wound VAC in place. Lab and Diagnostics Result Diagram: 10/15/16 0600 10/16/16 0530 Plan Impression 1. End-stage renal disease on hemodialysis every Sunday was in Sunday 4 hr, 2K, 35HCO3, DFR 600, BFR 400, UF 3L. Revaclear, AVF. 2. Chronic diabetic foot ulcers status post I and D with wound VAC in place and skin graft. 3. Type II diabetes with diabetic nephropathy 4. Hypertension with renal manifestation. 5. Hyperlipidemia 6. Hypothyroidism 7. Renal osteodystrophy Plan: Next HD on Sunday. We will monitor along with the team. Indira Alcala MD Oct 18, 2016 14:48
--- NOTE | 2016-10-18 15:37 | NUR ---
per [facility] req faxed facesheet and gave access to [facility].
--- NOTE | 2016-10-18 17:18 | PCM.PNMED ---
Subjective Date of Service Oct 18, 2016 Subjective Patient feels better today. The plan is to discharge to [facility] facility. Exam Vital Signs Vital Sign - Last Date Time Temp Pulse Resp B/P Pulse Ox O2 Delivery O2 Flow Rate FiO2 10/18/16 14:22 36.7 81 18 118/71 92 Room Air Intake and Output 10/17/16 10/17/16 10/18/16 Cumulative From/Thru 15:00 23:00 07:00 10/09/16 14:53 - 10/17/16 21:00 Intake Total 500 ml 3021 ml Output Total 10 ml 2731 ml Balance 490 ml 290 ml Intake Oral 2306 ml IV Total 500 ml 715 ml Output Urine Total 101 ml Ultrafiltrate 2600 ml Estimated Blood Loss 10 ml 30 ml # Bowel Movements 2 Exam PHYSICAL EXAM: GENERAL: Alert, not in distress, cooperative HEAD: atraumatic, normocephalic, no bruises. EYES: BRANT, EOMI, anicteric, able to fully open and close eyelids SKIN: Skin color normal, turgor normal. No visible rashes EAR, NOSE, MOUTH, THROAT: Lips, oral mucosa, tongue gums, oropharynx are moist , pink, no lesions. Ears normal appearance, no lesions. NECK: supple ROM normal. RESPIRATORY: Lungs clear to auscultation. Good diaphragmatic excursion. CARDIAC: normal S1 and S2; no rubs, murmurs, or gallops; regular rate and rhythm ABDOMEN: Abdomen soft, non-tender. BS normal. No masses or organomegaly. MUSCULOSKELETAL: ROM full, muscles are not tender. Patient has chronic wound on his heel with a wound VAC on EXTREMITIES: no pitting edema in LE, no new deformities or skin discoloration. NEURO: Alert, oriented X 3, Cranial nerves II-XII intact, Grossly normal motor function. PULSES: 2+ radial, 2+ carotid IVs and Medications Medications Reviewed: Medications were reviewed in detail Lab and Diagnostics Result Diagram: 10/15/16 0600 10/16/16 0530 Assessment & Plan Rt heel necrotic ulcer, POA, pt underwent I&D by on 10/11 , 10/17 in OR, Wound vac in place. -management per , plan for possible grafting today -pain control, abx per DM II - Stable - Continue with current meds Endstage Renal Disease on dialysis with renal osteodystrophy - Stable -continue HD as per renal service -continue midodrine, 10mg bid, Sensipar 60mg qhs PVD, Coronary Artery Disease, continue plavix unless it's contraindicated in post-op course. Hypothyroidism, continue levothyroxine 125mcg PO daily, will check TFTs to ensure euthyroid state Hypertension - stable Hyperlipidemia, continue Atorvastatin 10mg PO daily DVT PROPHYLAXIS: Heparin Disposition: discharge to [facility] Labs, radiology tests, Tele and ECG reviewed. Plan of care, available alternatives were discussed and reviewed with patient/ family. All questions answered. Patient/family verbalized understanding, approved and agreed to plan of care. VTE Mechanical Devices: Intermittant Pneumatic CD Kwan Landers MD Oct 18, 2016 17:18 Kwan Landers MD Oct 18, 2016 17:18
--- NOTE | 2016-10-18 18:34 | NUR ---
Return from Dialysis Patient returned to room via hospital bed. Patient alert and oriented. Re-oriented to room and call light. HR 78. BP 99/60. Addendum: 10/18/16 at 1844 by GABRIEL NAIK RN Time 14:00
[2016-10-18] MEDS: Heparin 5,000 Unit/mL Inj SUBQ SCH (19:40)
[2016-10-18 19:50] VITALS: BP 108/63; PULSE 91; RESP 17; O2SAT 94
--- NOTE | 2016-10-18 22:50 | PCM.PNPOD ---
Subjective Date of Service: Oct 18, 2016 Visit Information: Reason for Visit Necrotic Ulcer Right Heel With Type 2 Diabetes And Surgery/Surgery Date DEBRIDMENT R HEEL 10/12, SKIN GRAFT R HEEL 10/17 Post-Op Day # 1 Date of Admission: Oct 12, 2016 at 09:48 Subjective: Patient seen at bedside, resting comfortably. No complaints of pain. Dressing intact. Objective Vital Sign - Last Date Time Temp Pulse Resp B/P Pulse Ox O2 Delivery O2 Flow Rate FiO2 10/18/16 19:50 36.7 91 17 108/63 94 Room Air Intake and Output 10/17/16 10/17/16 10/18/16 Cumulative From/Thru 15:00 23:00 07:00 10/09/16 14:53 - 10/17/16 21:00 Intake Total 500 ml 3021 ml Output Total 10 ml 2731 ml Balance 490 ml 290 ml Intake Oral 2306 ml IV Total 500 ml 715 ml Output Urine Total 101 ml Ultrafiltrate 2600 ml Estimated Blood Loss 10 ml 30 ml # Bowel Movements 2 Result Diagram: 10/15/16 0600 10/16/16 0530 Lab Test 10/12/16 06:11 10/13/16 05:55 10/15/16 06:00 10/16/16 05:30 Thyroid Stimulating Hormone (TSH) 20.400uIU/mL (0.450-4.500) Free Thyroxine 1.26ng/dL (0.82-1.77) Hemoglobin A1c 9.0% (4.8-5.6) White Blood Count 9.7th/mm3 (3.8-10.1) Red Blood Count 3.48mil/mm3 (4.40-5.80) Hemoglobin 11.1g/dL (13.8-17.2) Hematocrit 35.2% (41.0-50.0) Mean Corpuscular Volume 101.1fL (81-100) Mean Corpuscular Hemoglobin 31.9pg (27.0-35.0) Mean Corpuscular Hemoglobin Concent 31.5% (32.0-37.0) Red Cell Distribution Width 13.9% (12.3-15.4) Platelet Count 340bil/L (150-400) Neutrophils (%) (Auto) 56.3% (40-74) Lymphocytes (%) (Auto) 25.2% (14-46) Monocytes (%) (Auto) 11.5% (4-12) Eosinophils (%) (Auto) 5.7% (0-5) Basophils (%) (Auto) 0.6% (0-3) Magnesium Level 1.9mg/dL (1.6-2.6) Total Bilirubin 0.2mg/dL (0.0-1.2) Aspartate Amino Transf (AST/SGOT) 14U/L (0-50) Alanine Aminotransferase (ALT/SGPT) 5U/L (0-44) Alkaline Phosphatase 93U/L (25-160) Total Protein 6.6g/dL (6.4-8.4) Albumin 3.0g/dL (3.4-5.0) Sodium Level 146mEq/L (134-144) Potassium Level 4.4mEq/L (3.5-5.2) Chloride Level 99mEq/L (97-108) Carbon Dioxide Level 30mmol/L (18-29) Blood Urea Nitrogen 43mg/dL (8-27) Creatinine 9.97mg/dL (0.76-1.27) Estimat Glomerular Filtration Rate 6mL/min (>59) Glucose Level 167mg/dL (60-99) Calcium Level 8.4mg/dL (8.5-10.1) Test 10/16/16 13:50 Phosphorus Level 3.1mg/dL (2.5-4.9) Parathyroid Hormone (Intact) 172pg/mL (15-65) Exam General: Alert, Oriented X3, Cooperative Lungs: Normal Air Movement Cardiac: Regular Rate/Rhythm Lower Extremities: Right: Edema localized (resolved) Lower Extremity Pulses: Doppler: Left Dorsalis Pedis Left Posterior Tibal Right Dorsalis Pedis Right Posterior Tibal Postop Sensory Motor: Distal Motor Intact Podiatry WOUND : Incision General Appearence: Wound Vac (in place, intact, 125mmHg continuous NPWT, right heel. Donor site is not draining through. ) Surgical Cast or Splint: None Assessment & Plan Problems: (1) Pressure ulcer of right heel, stage 3 Plan: Wound VAC to stay in place until Sunday. VAC change planned for Sunday after dialysis. Patient is not thrilled about SNF. If he does get discharged to SNF, they need to maintain his Wound VAC and not change it until I see him on Sunday. They need to get him to outpatient dialysis at his regular 12pm times to maintain the usual outpatient schedule. The patient wants a clear timeline for return to home. If he cannot go home, these orders need to be sent to SNF: Wound VAC to be maintained at 125mmHg continuous NPWT until Sunday and removed by [facility] staff or myself only. Proximal medial calf donor site: Maintain Xeroform on wound (do not take off, unless it comes off by itself), replace the rest with ABD pad and lightly wrapped Coban every 48 hours. He may bear weight for transfers and up to 100 steps a day in the modified postop shoe. Status: Acute ICD Code: L89.613 (2) Wound infection Plan: Ancef to continue after dialysis until at least October 25 due to wound colonization and location. Significant hyperglycemia after surgery is improving. Status: Acute ICD Code: T14.8 (3) Hyperkalemia Plan: Inpatient dialysis on regular -SUN-SUN schedule and additional treatments as needed. Dr. Harry's management is greatly appreciated. Patient is expected to return to outpatient dialysis either on Sunday this week. Status: Acute ICD Code: E87.5 Celine Carpio DPM Oct 18, 2016 22:50
[2016-10-19 05:00] VITALS: BP 147/77; PULSE 85; RESP 17; O2SAT 93
--- NOTE | 2016-10-19 07:18 | NUR ---
Activity Pt had no c/o pain/N/V all shift. Wound vac to right heel had very minimal serous output. Dressing C/D/I. Soc consult for today to discuss discharge to SNF.
[2016-10-19] MEDS: Heparin 5,000 Unit/mL Inj SUBQ SCH (08:26)
[2016-10-19] MEDS: Insulin GLARgine 100 Unit/mL Syringe SUBQ SCH (08:26)
[2016-10-19] MEDS: Insulin LISPRO 300 Unit/3 mL Inj SUBQ SCH ×2 (08:38→13:15)
[2016-10-19 08:39] VITALS: BP 136/78; PULSE 78; RESP 20; O2SAT 92
--- NOTE | 2016-10-19 12:29 | NUR ---
Social Work- Readiness for D/C Data: EMR reviewed. Pt is on day 7 of hospitalization. Pt discussed in multidisciplinary rounds. Originally, the plan was for patient to d/c to SNF for wound care needs and pt was agreeable. Referral had been faxed [facility]. Today medical team discussed in multidisciplinary rounds that pt is not agreeable to d/c to SNF and would like to go home. VENU spoke with Podiatry, Dr. Carpio regarding pt's care plan and Dr. Carpio feels that the ideal situation would be for care at SNF, especially given that pt will likely require supplemental oxygen to aid in graft healing. Dr. Carpio has shared this with pt and pt is well known to her. Dr. Carpio also requires pt to be transferred to his home Wound VAC prior to d/c as there can be no lapse in attachment. Hospitalist notified of pt's desire to return home rather than SNF. VENU spoke extensively with pt regarding d/c plan and SNF vs. HH. Benefits and risks of discharging home were discussed at length. Dr. Carpio and the Hospitalist's recommendations were discussed with patient, pt stated understanding and continues to prefer home with HH services. Pt feels that with his home wound VAC, [facility] services, home O2, and outpt Wound Care follow up that he will be able to manage at home and that is will be able to care for him. Pt is able to very minimally bear weight for transfers at home. Pt's is wheelchair bound but independent with ADLs and provides housekeeping, meals, and follow up care for pt at home. Pt is adamant that he wants to return home and repeatedly stated that SNF is not an option at this time. T/C to Cristina, pt's , regarding d/c plan, questions, concerns. Tootie is adamant as well that she wants pt to d/c home with HH, wound VAC, and outpt wound care. Tootie states that pt was receiving wound care three times a week prior to admission. Risks and benefits of d/c plan discussed with , stated understanding. Tootie confirms that she will be able to transport patient to and from all follow up appointments and is already planning on taking pt to appt on Sunday at the [facility] where Dr. Carpio will evaluate pt's graft. Tootie drives a wheelchair accessible van to transportation needs. Tootie confirms that she is comfortable with this d/c plan and is agreeable to home O2 coordination. T/T Hospitalist regarding HH services, in addition to home oxygen evaluation through [facility]. [facility] order has been placed. T/C Clinical Tech Coreen regarding d/c plan. Coreen confirms she will hook pt up to home wound VAC today. T/C to Dr. Carpio regarding pt's preferences and d/c plan. Dr. Carpio is agreeable to d/c plan home with [facility] services and she plans on faxing [facility] detailed instructions regarding pt's wound care. Fax # provided. Dr. Carpio will see pt on Sunday for follow up. T/C to Noel Jacob at [facility] regarding change in d/c plan. Resumption orders will be coordinated. Noel is aware that pt is likely to d/c today after home O2 evaluation and coordination. Noel will follow. Assessment: Pt for whom HH services through [facility] are necessary, as well as outpt wound care. Plan: Pt to d/c home with to transport via POV, resume [facility] services and receive wound care at Wound Center. Pt to receive home O2 evaluation and coordination prior to d/c. VENU will continue to follow. SINDHU Wilson Addendum: 10/19/16 at 1348 by ZBIGNIEW RICK SS [facility] determined that pt is not eligible for home O2 through insurance. Dr. Carpio and Hospitalist notified and agreeable. Pt cleared for d/c. SINDHU Wilson
[2016-10-19 12:38] VITALS: PULSE 73
--- NOTE | 2016-10-19 13:35 | PCM.DIMED ---
Discharge Instructions Date of Service Oct 19, 2016 Dates of Hospitalization Oct 12, 2016 at 09:48 Discharge Diagnosis Discharge Diagnosis Rt heel necrotic ulcer, I&D by on 10/11 , 10/17/16 in OR, Wound vac in place. Diet Discharge Diet: Renal Diet Activity Discharge Activity: Home Health Phyical Therapy Call your provider Call your provider for: Fever or Chills, Shortness of breath, Bleeding, Chest pain, Vomitting, Excessive diarrhea, Weakness (unilateral) Patient Instructions Patient Instructions Follow up with your primary doctor, academic administrator, bath house attendant in 2-3 days after discharge from the hospital. Follow-up with PCP in: Other (2-3 days after discharge) Kwan Landers MD Oct 19, 2016 13:35
[2016-10-19] MEDS ORDERED: OXYC1TAB24 PO (13:44)
--- NOTE | 2016-10-19 13:46 | PCM.DC.MED ---
Discharge Summary Date of Service Oct 19, 2016 Dates of Hospitalization Date of Hospital Admission Oct 12, 2016 at 09:48 Date of Discharge: Oct 19, 2016 Providers: Admitting Physician: Celine Carpio DPM Primary Care Physician: Olu Person MD Attending Physician: Celine Carpio DPM Diagnosis at Time of Discharge Diagnosis at Time of Discharge Rt heel necrotic ulcer, I&D by on 10/11 , 10/17/16 in OR, Wound vac in place. Hospital Course Hospital Course: Mr. Fischer is a 65-year-old male with past medical history of ESRD on HD Sunday, diabetes mellitus, hypertension, hypothyroidism, peripheral vascular disease who was admitted to hospital after receiving incision and drainage surgery by podiatry for a necrotic left heel ulcer. Pt underwent I&D by on 10/11 , 10/17 in OR, Wound vac in place.Patient was treated with IV antibiotic. PT was consulted and recommended SNF placement. Patient declined and asked to be discharged home. After patient improved he was discharged home with recommendation to follow up with his PCP, Flower Picker and Development Advisor for further management of his medical problems. Patient Condition @ Discharge: good Discharge Disposition: home* Discharge Activity: resume regular activity Discharge Diet: regular renal , carb control, diet, heart healthy, low fat, low salt, high fiber Information Provided to Patient: information about discharge medications Discharge Medications: I discussed with patient medication dosage, usage, goals of therapy, side effects, alternatives. During discharge patient was allert, oriented, fully competent, able to make own informed decisions. We discussed possible severe side effects, adverse reactions, benefits, risks, alternatives of current and newly prescribed medications and diagnostic procedures. Patient verbalized understanding and agreed to current plan of care and discharge. TIME SPENT IN DISCHARGE ACTIVITY: Face to face activity greater then 30 minutes spent in discharge activity. 1. Discussed with patient re: discharge plan of care/treatment, and follow up care/services. 2. Patient agreed with discharge plan and further plan of care, all questions were answered/addressed, no further questions at the time of discharge. Exam Vital Signs (Last) Date Time Temp Pulse Resp B/P Pulse Ox O2 Delivery O2 Flow Rate FiO2 10/19/16 12:38 73 Room Air 10/19/16 08:39 36.8 20 136/78 92 Exam Patient was seen and examined on the day of discharge Test 10/12/16 06:11 10/13/16 05:55 10/15/16 06:00 10/16/16 13:50 Thyroid Stimulating Hormone (TSH) 20.400uIU/mL (0.450-4.500) Free Thyroxine 1.26ng/dL (0.82-1.77) Hemoglobin A1c 9.0% (4.8-5.6) White Blood Count 9.7th/mm3 (3.8-10.1) Red Blood Count 3.48mil/mm3 (4.40-5.80) Hemoglobin 11.1g/dL (13.8-17.2) Hematocrit 35.2% (41.0-50.0) Mean Corpuscular Volume 101.1fL (81-100) Mean Corpuscular Hemoglobin 31.9pg (27.0-35.0) Mean Corpuscular Hemoglobin Concent 31.5% (32.0-37.0) Red Cell Distribution Width 13.9% (12.3-15.4) Platelet Count 340bil/L (150-400) Neutrophils (%) (Auto) 56.3% (40-74) Lymphocytes (%) (Auto) 25.2% (14-46) Monocytes (%) (Auto) 11.5% (4-12) Eosinophils (%) (Auto) 5.7% (0-5) Basophils (%) (Auto) 0.6% (0-3) Magnesium Level 1.9mg/dL (1.6-2.6) Total Bilirubin 0.2mg/dL (0.0-1.2) Aspartate Amino Transf (AST/SGOT) 14U/L (0-50) Alanine Aminotransferase (ALT/SGPT) 5U/L (0-44) Alkaline Phosphatase 93U/L (25-160) Total Protein 6.6g/dL (6.4-8.4) Albumin 3.0g/dL (3.4-5.0) Phosphorus Level 3.1mg/dL (2.5-4.9) Parathyroid Hormone (Intact) 172pg/mL (15-65) Test 10/19/16 09:41 Sodium Level 140mEq/L (134-144) Potassium Level 4.4mEq/L (3.5-5.2) Chloride Level 96mEq/L (97-108) Carbon Dioxide Level 28mmol/L (18-29) Blood Urea Nitrogen 25mg/dL (8-27) Creatinine 6.69mg/dL (0.76-1.27) Estimat Glomerular Filtration Rate 9mL/min (>59) Glucose Level 247mg/dL (60-99) Calcium Level 8.8mg/dL (8.5-10.1) Discharge Medications Discharge Medications Atorvastatin Calcium (Atorvastatin Calcium) 10 Mg Tablet 10 MG PO DAILY ( Reported) Cinacalcet (Sensipar) 30 Mg Tablet 60 MG PO HS (Reported) Clopidogrel Bisulfate (Plavix) 75 Mg Tablet 75 MG PO DAILY (Reported) Insulin Glargine (Lantus U100 Insulin Vial) 100 Unit/Ml Vial 25 UNIT SUBQ HS ( Reported) Insulin Regular, Human (Novolin-R U100 Insulin Vial) 100 Unit/1 Ml Vial 5-10 SQ tid sliding scale (Reported) Levothyroxine (Levothyroxine) 125 Mcg Tablet 125 MCG PO DAILY (Reported) Midodrine (Midodrine) 10 Mg Tablet 10 MG PO BID (Reported) As needed oxyCODONE-Acetaminophen 5-325 mg (oxyCODONE-Acetaminophen 5-325 mg) 1 Each Tablet 1 TAB PO Q8H PRN PRN For Pain Prescribed by: DON VICENTE MD Followup Plan Discharge Diet: Renal Diet Discharge Activity: Home Health Phyical Therapy Patient Instructions Follow up with your primary doctor, burr bench operator, director of premium seat sales in 2-3 days after discharge from the hospital. Follow-up with PCP in: Other (2-3 days after discharge) Kwan Landers MD Oct 19, 2016 13:46 Prescribed by: DON VICENTE MD Followup Plan Discharge Diet: Renal Diet Discharge Activity: Home Health Phyical Therapy Patient Instructions Follow up with your primary doctor, burr bench operator, director of premium seat sales in 2-3 days after discharge from the hospital. Follow-up with PCP in: Other (2-3 days after discharge) Kwan Landers MD Oct 19, 2016 13:46
--- NOTE | 2016-10-19 15:00 | NUR ---
Inpatient Wound Nurse Patient's brought in their home NPWT unit and an empty, clean, fresh canister was attached. Suction was already programmed at 125 and although no digital printer cord was available ( had left it at home), battery icon indicated full charge. Tubing was detached from hospital NPWT unit and attached to home NPWT unit and suction initiated without challenge, no leaks detected. Patient stated that he had no questions and understood how NPWT should work at home. confirmed that patient has dialysis tomorrow and will be seen [facility] by Dr. Carpio on Sunday. Message left for CS that hospital's NPWT unit is in dirty utility on south end of [place].
--- NOTE | 2016-10-19 15:15 | NUR ---
Social Work- Discharge Data: EMR reviewed. Pt is cleared for d/c with [facility] and outpt wound care follow up. Pt has home wound VAC. Pt and updated and agreeable to plan, pt to d/c home with to transport via POV. No additional needs. Assessment: Pt for whom [facility] are medically necessary Plan: Pt to d/c home with [facility] and outpt wound care. Pt to d/c home with to transport via POV. No additional needs. Adelia Hobbs MSW
--- NOTE | 2016-10-19 15:42 | NUR ---
DISCHARGE Patient alert, oriented, and stable. Patient's home wound vac attached by [facility]. IV d/c. Prescription, med schedule, discharge instructions, and follow-up appointments reviewed with patient and . Wound care appointment scheduled for tomorrow. Patient to continue dialysis as scheduled. Patient transported via wheelchair to personal vehicle. Patient discharged to home with and with all his personal belongings. Addendum: 10/19/16 at 1557 by GABRIEL NAIK RN Dr. Carpio and Dr. Landers aware that patient doesn't qualify for home O2 per RT. Patient's O2 saturation in low 90s.
== END 2016-10-19 15:25 | disposition home health service (06) | DRG 573 ==
LOC: SAS 05:33 → OSC 09:48
PROVIDERS: ADMIT Podiatrist; ATTEND Podiatrist
PROC: 0JBQ0ZZ Excision of Right Foot Subcutaneous Tissue and Fascia, Open Approach (ICD-10-PCS; principal; 2016-10-12 07:30)
PROC: 5A1D00Z (ICD-10-PCS; 2016-10-13)
PROC: 5A1D00Z (ICD-10-PCS; 2016-10-16)
PROC: 0HRMX74 Replacement of Right Foot Skin with Autologous Tissue Substitute, Partial Thickness, External Approach (ICD-10-PCS; 2016-10-17)
PROC: 0HBKXZZ Excision of Right Lower Leg Skin, External Approach (ICD-10-PCS; 2016-10-17)
PROC: 5A1D00Z (ICD-10-PCS; 2016-10-18)
DX: L89.613 Pressure ulcer of right heel, stage 3 (principal); N18.6 End stage renal disease; I12.0 Hypertensive chronic kidney disease with stage 5 chronic kidney disease or end stage renal disease; E11.40 Type 2 diabetes mellitus with diabetic neuropathy, unspecified; Z99.2 Dependence on renal dialysis; Z79.02 Long term (current) use of antithrombotics/antiplatelets; Z79.4 Long term (current) use of insulin; Z79.82 Long term (current) use of aspirin; Z87.891 Personal history of nicotine dependence; E03.9 Hypothyroidism, unspecified; I73.9 Peripheral vascular disease, unspecified; E11.65 Type 2 diabetes mellitus with hyperglycemia; I25.10 Atherosclerotic heart disease of native coronary artery without angina pectoris; E78.5 Hyperlipidemia, unspecified; G25.81 Restless legs syndrome